=== PATIENT | female | born 1930 | race Caucasian/White ===

== ENCOUNTER → 2017-06-25 | Outpatient (CLI) | payer MEDICARE, BC ==
[~2017-06-25] MED LIST: ALE10 PO; ALEN70TA43 PO; AML5; AMLO-96 PO; ASPI-1471 PO; BLOO-1318 MC; CARB-94 PO; CHOL10005 PO; CYCL10TA29 PO; DIAZ-308 PO; FLU IM; GLIM2TAB43 PO; GLIM4TAB50 PO; HYDR-4309 PO; IRBE1TAB24 PO; LANC-714 MC; LEVO250T55 PO; LOR5/325 PO; LOSA-51 PO; LOSA-54 PO; MELO-205 PO; METF500T4 PO; METH4TAB66 PO; METO-233 PO; METO-235 PO; NAPR-1043 PO; OMEP-125 PO; PAN40 PO; PNEU0.5D3 IM; PRI250 PO; PRIM50TA PO; SIMV-49 PO; TRAM-420 PO; [UNRECOGNIZED DRUG - CODE] PO
[2017-06-25 10:54] LABS: PLATELET COUNT, AUTOMATED 285 K/uL (150-450)
== END ==
LOC: LAB 10:29
PROVIDERS: ATTEND Emergency Medicine
DX: E11.9 Type 2 diabetes mellitus without complications (principal)
CPT/HCPCS: 36415; 82040; 82247; 82310; 82374; 82435; 82465; 82565; 82947; 83036; 83718; 84075; 84132; 84155; 84295; 84450; 84460; 84478; 84520; 85025

== ENCOUNTER 2017-07-24 10:59 | Inpatient (IN) | payer MEDICARE, BC ==
[~2017-07-24] VITALS: Ht 149.9 cm; Wt 48.5 kg
[~2017-07-24 10:59] MED LIST changes: +DEN60I SUBQ
--- NOTE | 2017-07-24 11:07 | ER Report ---
History and Physical Time Seen By MD: 11:06 HPI/ROS CHIEF COMPLAINT: Abdominal pain HISTORY OF PRESENT ILLNESS: This is an 87-year-old female who presents to the emergency department for severe abdominal pain, nausea and vomiting. Patient states she woke up suddenly at 3:00 this morning with diffuse abdominal pain, has been progressively getting worse she's had multiple episodes of vomiting, no diarrhea. Patient had 2 "normal bowel movements" yesterday. Patient denies aches, chills, chest pain or shortness of breath. Denies headaches or rashes. Patient is very pale and holding her abdomen. No radiation to the back. REVIEW OF SYSTEMS: Constitutional: No fever, no chills. Eyes: No discharge. ENT: No sore throat. Cardiovascular: No chest pain, no palpitations. Respiratory: No cough, no shortness of breath. Gastrointestinal: As above. Genitourinary: No hematuria. Musculoskeletal: No back pain. Skin: No rashes. Neurological: No headache. Allergies: Coded Allergies: amoxicillin (Unverified Allergy, Unknown, UNKNOWN, 09/06/15) celecoxib (Unverified Allergy, Unknown, UNKNOWN, 09/06/15) clavulanic acid (Unverified Allergy, Unknown, UNKNOWN, 09/06/15) gluten (Verified Allergy, Unknown, 09/06/15) nitrofurantoin (Unverified Allergy, Unknown, UNKNOWN, 09/06/15) Home Meds Active Scripts Losartan/Hydrochlorothiazide (LOSARTAN-HCTZ 100-25 MG TAB) 1 Each Tablet, 1 EACH PO QDAY, #90 TAB 4 Refills Prov:MARSHA BARRAGAN MD 03/15/17 Lancets (LANCETS) 1 Each Each, 1 EACH MC DAILY, #100 9 Refills Use once a day to test blood sugar Prov:MARSHA BARRAGAN MD 12/29/16 Blood Sugar Diagnostic (ONE TOUCH ULTRA TEST STRIPS) 1 Each Strip, 1 EACH MC BID , #100 STRIP 6 Refills Prov:MARSHA BARRAGAN MD 12/28/16 Simvastatin (SIMVASTATIN) 20 Mg Tablet, 1 TAB PO HS, #90 TAB 4 Refills Prov:MARSHA BARRAGAN MD 10/17/16 Glimepiride (GLIMEPIRIDE) 2 Mg Tablet, 2 MG PO QDAY, #90 TAB 3 Refills Prov:MARSHA BARRAGAN MD 09/28/16 Metoprolol Succinate (TOPROL XL) 50 Mg Tab.er.24h, 1 TAB PO QDAY, #90 TAB 3 Refills Prov:MARSHA BARRAGAN MD 09/28/16 Omeprazole (OMEPRAZOLE) 20 Mg Capsule.dr, 1 CAP PO QDAY, #90 CAP 4 Refills Prov:MARSHA BARRAGAN MD 08/09/16 Carbidopa/Levodopa (CARBIDOPA-LEVODOPA 25-100 TAB) 1 Each Tablet, 1 EACH PO QID , #0 TAB Prov:MARSHA BARRAGAN MD 06/19/16 Reported Medications Aspirin (ASPIRIN) 81 Mg Tab.chew, 81 MG PO QDAY, TAB.CHEW 07/24/17 Denosumab (PROLIA) 60 Mg/1 Ml Injs, 60 MG SUBQ 07/24/17 Primidone (PRIMIDONE) 50 Mg Tab, 1 TAB PO TID, #90 TAB 12/08/14 Discontinued Reported Medications Cholecalciferol (Vitamin D3) (VITAMIN D3) 1,000 Unit Tablet, 1 TAB PO DAILY, # 100 TAB 4 Refills 07/15/14 Discontinued Scripts Alendronate Sodium (FOSAMAX) 70 Mg Tablet, 70 MG PO QWK, #14 TAB 3 Refills Prov:MARSHA BARRAGAN MD 01/30/17 Past Medical/Surgical History Patient has a past medical and surgical history of aortic valve stenosis, hypertension, hypercholesterolemia, COPD, GERD, lactose-free diet, arthritis, back pain, wears glasses, type II diabetes, laminectomy, right shoulder surgery , tonsillectomy, laser surgery to right eye. Reviewed Nurses Notes: Yes Hx Smoking: No Smoking Status: Never Smoker Constitutional Vital Sign - Last 24 Hours 07/24/17 07/24/17 07/24/17 07/24/17 10:59 11:09 11:09 11:14 Temp 97.7 Pulse ??? 62 ??? Resp 18 B/P (MAP) 187/84 187/84 (118) Pulse Ox 94 100 O2 Delivery Room Air 07/24/17 07/24/17 07/24/17 07/24/17 11:29 11:30 11:44 11:59 Pulse ? 68 Resp 8 B/P (MAP) 169/71 (103) Pulse Ox 100 99 07/24/17 07/24/17 07/24/17 07/24/17 12:00 12:14 12:29 12:30 Pulse 88 70 Resp 10 13 B/P (MAP) 172/83 (112) 157/92 (113) Pulse Ox 99 92 07/24/17 12:44 Pulse ??? Intake and Output 07/24/17 07/24/17 07/25/17 15:00 23:00 07:00 Intake Total 500 ml Output Total 50 ml Balance 450 ml Physical Exam General Appearance: The patient is alert, has no immediate need for airway protection and no signs of toxicity, pale and appears very uncomfortable. Eyes: Pupils equal and round no pallor or injection. ENT, Mouth: Mucous membranes are moist. No erythema to the posterior oropharynx. Respiratory: There are no retractions, lungs are clear to auscultation. Cardiovascular: Regular rate and rhythm, systolic murmur, no clicks or rubs. Gastrointestinal: Abdomen is soft and non tender with palpation, no masses, bowel sounds normal. Neurological: Alert and oriented X4, moving all extremities, following on all commands, no focal neuro deficits. Skin: Warm and dry, no rashes. Musculoskeletal: Neck is supple non tender. No lymphadenopathy. Extremities are nontender, nonswollen and have full range of motion. DIFFERENTIAL DIAGNOSIS: After history and physical exam differential diagnosis was considered for abdominal pain in a female including but not limited to ovarian cyst, pelvic inflammatory disease, ovarian torsion, urinary tract infection, appendicitis, SD and aortic aneurysm. Medical Decision Making Data Points Result Diagram: 07/24/17 1111 07/24/17 1111 Laboratory Hematology Test 07/24/17 11:11 07/24/17 12:35 07/24/17 14:43 Red Blood Count 4.59 M/uL (4.17-5.56) Mean Corpuscular Volume 89.5 fL (80.0-96.0) Mean Corpuscular Hemoglobin 30.2 pg (26.0-33.0) Mean Corpuscular Hemoglobin Concent 33.7 g/dL (32.0-36.0) Red Cell Distribution Width 13.2 % (11.5-14.5) Mean Platelet Volume 8.7 fL (7.2-11.1) Neutrophils (%) (Auto) 83.3 % (39.4-72.5) Lymphocytes (%) (Auto) 13.5 % (17.6-49.6) Monocytes (%) (Auto) 2.1 % (4.1-12.4) Eosinophils (%) (Auto) 0.3 % (0.4-6.7) Basophils (%) (Auto) 0.8 % (0.3-1.4) Nucleated RBC Relative Count (auto) 0.0 /100WBC Neutrophils # (Auto) 12.6 K/uL (2.0-7.4) Lymphocytes # (Auto) 2.0 K/uL (1.3-3.6) Monocytes # (Auto) 0.3 K/uL (0.3-1.0) Eosinophils # (Auto) 0.1 K/uL (0.0-0.5) Basophils # (Auto) 0.1 K/uL (0.0-0.1) Nucleated RBC Absolute Count (auto) 0.01 K/uL Sodium Level 133 mmol/L (137-145) Potassium Level 3.5 mmol/L (3.5-5.0) Chloride Level 94 mmol/L (98-107) Carbon Dioxide Level 24 mmol/L (22-31) Blood Urea Nitrogen 30 mg/dl (7-18) Creatinine 1.00 mg/dl (0.52-1.04) Glomerular Filtration Rate Calc 52.7 Random Glucose 188 mg/dl (75-110) Calcium Level 9.4 mg/dl (8.4-10.2) Total Bilirubin 0.6 mg/dl (0.2-1.3) Aspartate Amino Transf (AST/SGOT) 31 U/L (0-35) Alanine Aminotransferase (ALT/SGPT) 20 U/L (0-56) Alkaline Phosphatase 99 U/L (0-126) Troponin I < 0.012 ng/ml Total Protein 7.3 gm/dl (6.3-8.2) Albumin 4.2 g/dl (3.5-5.0) Amylase Level 113 U/L (0-110) Lipase 98 U/L (23-300) Urine Color Yellow Urine Clarity Clear Urine pH 7.0 pH (4.8-9.5) Urine Specific [place] 1.017 Urine Protein Negative mg/dL (NEGATIVE) Urine Glucose (UA) 50 mg/dL (NEGATIVE) Urine Ketones 20 mg/dL (NEGATIVE) Urine Blood Negative (NEGATIVE) Urine Nitrite Negative (NEGATIVE) Urine Bilirubin Negative (NEGATIVE) Urine Urobilinogen Negative mg/dL (0.2-1.9) Urine Leukocyte Esterase Negative (NEGATIVE) Urine RBC None /HPF (0-2/HPF) Urine WBC 8 /HPF (0-5/HPF) Urine Squamous Epithelial Cells Moderate /LPF (NONE-FEW) Urine Bacteria Negative /HPF (NONE-FEW) Urine Mucus None /HPF (NONE-FEW) Lactate 3.1 mmol/L (0.7-2.1) Chemistry Test 07/24/17 11:11 07/24/17 12:35 07/24/17 14:43 White Blood Count 15.1 k/uL (4.5-11.0) Red Blood Count 4.59 M/uL (4.17-5.56) Hemoglobin 13.8 g/dL (12.0-16.0) Hematocrit 41.1 % (34.0-47.0) Mean Corpuscular Volume 89.5 fL (80.0-96.0) Mean Corpuscular Hemoglobin 30.2 pg (26.0-33.0) Mean Corpuscular Hemoglobin Concent 33.7 g/dL (32.0-36.0) Red Cell Distribution Width 13.2 % (11.5-14.5) Platelet Count 258 K/uL (150-450) Mean Platelet Volume 8.7 fL (7.2-11.1) Neutrophils (%) (Auto) 83.3 % (39.4-72.5) Lymphocytes (%) (Auto) 13.5 % (17.6-49.6) Monocytes (%) (Auto) 2.1 % (4.1-12.4) Eosinophils (%) (Auto) 0.3 % (0.4-6.7) Basophils (%) (Auto) 0.8 % (0.3-1.4) Nucleated RBC Relative Count (auto) 0.0 /100WBC Neutrophils # (Auto) 12.6 K/uL (2.0-7.4) Lymphocytes # (Auto) 2.0 K/uL (1.3-3.6) Monocytes # (Auto) 0.3 K/uL (0.3-1.0) Eosinophils # (Auto) 0.1 K/uL (0.0-0.5) Basophils # (Auto) 0.1 K/uL (0.0-0.1) Nucleated RBC Absolute Count (auto) 0.01 K/uL Glomerular Filtration Rate Calc 52.7 Calcium Level 9.4 mg/dl (8.4-10.2) Total Bilirubin 0.6 mg/dl (0.2-1.3) Aspartate Amino Transf (AST/SGOT) 31 U/L (0-35) Alanine Aminotransferase (ALT/SGPT) 20 U/L (0-56) Alkaline Phosphatase 99 U/L (0-126) Troponin I < 0.012 ng/ml Total Protein 7.3 gm/dl (6.3-8.2) Albumin 4.2 g/dl (3.5-5.0) Amylase Level 113 U/L (0-110) Lipase 98 U/L (23-300) Urine Color Yellow Urine Clarity Clear Urine pH 7.0 pH (4.8-9.5) Urine Specific [place] 1.017 Urine Protein Negative mg/dL (NEGATIVE) Urine Glucose (UA) 50 mg/dL (NEGATIVE) Urine Ketones 20 mg/dL (NEGATIVE) Urine Blood Negative (NEGATIVE) Urine Nitrite Negative (NEGATIVE) Urine Bilirubin Negative (NEGATIVE) Urine Urobilinogen Negative mg/dL (0.2-1.9) Urine Leukocyte Esterase Negative (NEGATIVE) Urine RBC None /HPF (0-2/HPF) Urine WBC 8 /HPF (0-5/HPF) Urine Squamous Epithelial Cells Moderate /LPF (NONE-FEW) Urine Bacteria Negative /HPF (NONE-FEW) Urine Mucus None /HPF (NONE-FEW) Lactate 3.1 mmol/L (0.7-2.1) Urinalysis Test 07/24/17 12:35 Urine Color Yellow Urine Clarity Clear Urine pH 7.0 pH (4.8-9.5) Urine Specific [place] 1.017 Urine Protein Negative mg/dL (NEGATIVE) Urine Glucose (UA) 50 mg/dL (NEGATIVE) Urine Ketones 20 mg/dL (NEGATIVE) Urine Blood Negative (NEGATIVE) Urine Nitrite Negative (NEGATIVE) Urine Bilirubin Negative (NEGATIVE) Urine Urobilinogen Negative mg/dL (0.2-1.9) Urine Leukocyte Esterase Negative (NEGATIVE) Urine RBC None /HPF (0-2/HPF) Urine WBC 8 /HPF (0-5/HPF) Urine Squamous Epithelial Cells Moderate /LPF (NONE-FEW) Urine Bacteria Negative /HPF (NONE-FEW) Urine Mucus None /HPF (NONE-FEW) EKG/Imaging EKG Interpretation 12 lead EKG: EKG 1116. Rhythm: Sinus rhythm, ventricular rate 72 bpm. [place]: normal QRS: normal ST segments: No ST depression or elevation identified. No significant changes from the May 25, 2015 EKG, other than the current EKG showing PAC's. Imaging 2 VIEWS CHEST INDICATION: Severe abdominal pain. COMPARISON: 08/03/2015. FINDINGS: Cardiomediastinal silhouette and pulmonary vessels within normal limits. There is no focal infiltrate or lobar consolidation. There is no pneumothorax or pleural effusion. No nodule. Upper abdomen is unremarkable. No acute bony abnormality. IMPRESSION: 1. No acute cardiopulmonary process. Report Dictated By: Lew Segal at 07/24/2017 12:07 PM Report E-Signed By: Lew Segal at 07/24/2017 12:09 PM WSN:[id number] ED Course/Re-evaluation Clinical Indication for ER IV: Hydration, IV Access ED Course The patient was admitted to room. A history and physical were obtained. Differential diagnoses were considered. An IV was started. A 500 mL normal saline bolus was given. A CBC, CMP, troponin, amylase and lipase were obtained. Mild leukocytosis, blood sugar 188. The rest of the labs unremarkable. Patient was given Zofran IV 2, 50 g IV fentanyl. A 2 view chest x-ray was unremarkable. I reviewed the chest x-ray and laboratory studies with the patient. I did tell her I do not have a good explanation for her abdominal pain and therefore we need to scan her abdomen and pelvis. Patient is in agreement with this. A CT of the abdomen and pelvis showing a small bowel obstruction with possible early ischemic changes. I did review these results with the patient and told her that I will call Dr. Ortega and discuss a possible admit. I did speak with Dr. Ortega as noted below, he has accepted the patient into his services and will be admitted to [facility]. Dr. Ortega did call Dr. Cotto the hospitalist medical authorization specialist for a medical consult. An NG tube was placed. The patient was admitted to the medical surgical unit patient and other questions or concerns at the time of admission. 07/24/2017 2:09:40 pm I did speak with Dr. Luo regarding the patient's case , he has accepted the patient into his services he will call Dr. Cotto for hospitalist consults have the patient admitted. And place an NG tube. Decision to Disposition Date: Jul 24, 2017 Decision to Disposition Time: 14:15 Depart Departure Latest Vital Signs Vital Signs Date Time Temp Pulse Resp B/P (MAP) Pulse Ox O2 Delivery O2 Flow Rate FiO2 07/24/17 12:44 ??? 07/24/17 12:30 157/92 (113) 07/24/17 12:29 13 92 07/24/17 11:09 97.7 Room Air Impression: Primary Impression: Small bowel obstruction Condition: Improved Disposition: Admitted from ER Referrals: MARSHA BARRAGAN MD (PCP) NENA BALDERAS [employer] Jul 24, 2017 11:07
[2017-07-24] MEDS ORDERED: NS(*) 0.9% 500 ML BAG 500 ML IV ONE (11:11)
[2017-07-24] MEDS ORDERED: ONDANSETRON 4 MG/2 ML VIAL IVP ONE ×2 (11:15→12:20)
[2017-07-24] MEDS ORDERED: DEN60I SUBQ (11:19)
[2017-07-24] MEDS ORDERED: ASPI81TA94 PO (11:22)
--- NOTE | 2017-07-24 11:25 | EKG ---
FACILITY: [facility] - [place] PATIENT NAME: MELL SALAS : [id number] MR: [id number] V: [id number] EXAM DATE: ORDERING PHYSICIAN: NENA BALDERAS TECHNOLOGIST: PUSHPA Sampson Reason : Blood Pressure : / mmHG Vent. 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
[2017-07-24 11:29] LABS: PLATELET COUNT, AUTOMATED 258 K/uL (150-450)
--- NOTE | 2017-07-24 12:12 | RADIOLOGY IMAGING REPORT ---
FACILITY: [facility] PATIENT NAME: Chaya Dunne : 1930 MR: [id number] V: [id number] EXAM DATE: ORDERING PHYSICIAN: NENA BALDERAS TECHNOLOGIST: Location: [facility] Patient: Chaya Dunne : 1930 Visit/Account:[id number] Date of Sevice: 07/24/2017 2 VIEWS CHEST INDICATION: Severe abdominal pain. COMPARISON: 08/03/2015. FINDINGS: Cardiomediastinal silhouette and pulmonary vessels within normal limits. There is no focal infiltrate or lobar consolidation. There is no pneumothorax or pleural effusion. No nodule. Upper abdomen is unremarkable. No acute bony abnormality. IMPRESSION: 1. No acute cardiopulmonary process. Report Dictated By: Lew Segal at 07/24/2017 12:07 PM Report E-Signed By: Lew Segal at 07/24/2017 12:09 PM WSN:[id number]
[2017-07-24] MEDS ORDERED: fentaNYL CITR 100 MCG/2 ML AMP IVP ONE ×2 (12:20→14:05)
[2017-07-24] MEDS ORDERED: IOPAMIDOL 76% 75 ML INFUS BTL 75 ML ONE (12:29)
--- NOTE | 2017-07-24 14:02 | RADIOLOGY IMAGING REPORT ---
FACILITY: [facility] PATIENT NAME: Chaya Dunne : 1930 MR: [id number] V: [id number] EXAM DATE: ORDERING PHYSICIAN: NENA BALDERAS TECHNOLOGIST: Location: [facility] Patient: Chaya Dunne : 1930 Visit/Account:[id number] Date of Sevice: 07/24/2017 CT abdomen and pelvis with IV contrast Indication: Abdomen pain. Comparison: None available. . Technique: Axial CT images were obtained through the abdomen and pelvis during injection of nonioni c iodinated intravenous contrast. Reformatted coronal and sagittal images were also obtained. One of the following dose optimization techniques was utilized in the performance of this exam: Autom ated exposure control; adjustment of the mA and/or kV according to the patient's size; or use of an i terative reconstruction technique. Specific details can be referenced in the facility's radiology C T exam operational policy. Contrast: 75 ml of Isovue-370 IV contrast. Findings: Lower lung maria: Limited views lower lung field are unremarkable. Liver: No focal parenchymal abnormality of the liver. Biliary: Status post costectomy. The biliary system is unremarkable postcholecystectomy and patient's age. Pancreas: Normal appearance. Spleen: Normal appearance. Adrenal glands: Unremarkable. Kidneys / retroperitoneum: No evidence of nephrolithiasis or hydronephrosis. Superior pole of the lef t kidney shows a 1.5 cm cyst. No other discrete renal lesions. Bowel / peritoneum / mesenteries: There are multiple loops of mild dilatation the small bowel in the right lower abdomen and pelvis with mild wall thickening and surrounding inflammation. Focal small reena wel in the mid lower abdomen does show focal luminal narrowing seen on image #84. A cause is not iden tified in this region however this appears to be the area of transition. The proximal small bowel is unremarkable. The colon shows no focal abnormality. The appendix is normal. The stomach is unremarkab le with a possible small hiatal hernia. Small amount of free fluid seen in the pelvis. No fluid collections or free air. No other areas of in flammation. Lymph node assessment: No pathologic adenopathy identified. Pelvic structures: The uterus is not visualized may been surgically removed. The remaining pelvic structures visualized within normal limits. Vessels: Mild atherosclerotic calcifications seen throughout a nonaneurysmal abdominal aorta and bran ches. Musculoskeletal / Body wall: No acute or aggressive osseous abnormality. Degenerative changes of the spine and hips. Previous fractures of the rami. IMPRESSION: 1. Abnormal distal small bowel consistent with obstruction. Area of transition appears to be in lower mid abdomen with a area of luminal narrowing without a mass or focal abnormality. This could be due to a stricture/band causing an obstruction or a internal hernia. Small bowel does show some mild wall thickening with some surrounding inflammation and small amount of fluid in the pelvis. At this point cannot exclude early ischemic changes to this region of the small bowel. 2. Other chronic findings as above. I called report to NENA BALDERAS at 07/24/2017 1:57 PM. Report Dictated By: Lew Segal at 07/24/2017 1:48 PM Report E-Signed By: Lew Segal at 07/24/2017 1:58 PM WSN:[id number]
[2017-07-24] MEDS ORDERED: NS(*) 0.9% 1000 ML BAG 1,000 ML IV PRN (14:17)
[2017-07-24] MEDS ORDERED: NALOXONE HCL 0.4 MG/ML VIAL IVP PRN (14:20)
[2017-07-24] MEDS ORDERED: ONDANSETRON 4 MG/2 ML VIAL IVP PRN (14:20)
[2017-07-24] MEDS ORDERED: FLUSH 10 ML SYR IVP PRN (14:20)
[2017-07-24] MEDS ORDERED: HYDROmorphone PCA 6 MG/30 ML IV PRN (14:20)
[2017-07-24] MEDS ORDERED: LEVOFLOXACIN/D5W*500 MG/100 ML 100 ML IVPB ONE (15:00)
--- NOTE | 2017-07-24 15:24 | RADIOLOGY IMAGING REPORT ---
FACILITY: [facility] - [place] PATIENT NAME: Chaya Dunne : 1930 MR: [id number] V: [id number] EXAM DATE: ORDERING PHYSICIAN: ELEN RIBERA TECHNOLOGIST: [place] [facility] [place]: Chaya Dunne : 1930 Visit/Account:[id number] Date of Sevice: 07/24/2017 KUB SINGLE VIEW ABDOMEN INDICATION: NG tube placement. Small bowel obstruction. COMPARISON: CT of the abdomen pelvis done earlier in the day. FINDINGS: Single frontal view the abdomen. NG tube in place tip in the stomach. No dilated small reena wel loops are appreciated. Some stool seen in colon. Residual contrast seen in the urinary bladder an d kidneys. Abdominal soft tissues grossly normal without suspicious lucencies or abnormal calcificati ons. Lung bases are clear. No acute bony abnormality. IMPRESSION: NG tube in place with tip in the stomach. No appreciable dilated air-filled small bowel l oops. Report Dictated By: Lew Segal at 07/24/2017 3:17 PM Report E-Signed By: Lew Segal at 07/24/2017 3:19 PM WSN:[id number]
[2017-07-24 16:06] VITALS: BP 182/84
[2017-07-24] MEDS: LEVOFLOXACIN/D5W*500 MG/100 ML 100 ML IVPB SCH (16:16)
[2017-07-24] MEDS ORDERED: CHOL10005 PO (16:37)
[2017-07-24] MEDS: metroNIDAZOLE* 500MG/100ML BAG 100 ML IVPB SCH (17:21)
[2017-07-24] MEDS: CARBIDOPA/LEVODOPA 25/100 TAB PO SCH ×2 (17:31→21:57)
[2017-07-24] MEDS ORDERED: LABETALOL HCL 100 MG/20ML VIAL IVP PRN (17:40)
--- NOTE | 2017-07-24 17:48 | Hospitalist Consultation ---
History of Present Illness Requesting Physician Jordan Reason for Consult Aortic Stenosis History of Present Illness 87yo female with a h/o aortic stenosis, T2DM, and Parkinson disease who was admitted for a SBO. She was in her normal state of health until about 3am this morning when she developed abdominal pain, nausea and vomiting. No cp/sob/f/c/ edema/orthopnea. She had some "hard" stools in the last couple of days. 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 (11) Essential hypertension Status: Chronic (12) Hyperlipidemia Status: Chronic (13) GERD (gastroesophageal reflux disease) Status: Chronic Home Meds Active Scripts Losartan/Hydrochlorothiazide (LOSARTAN-HCTZ 100-25 MG TAB) 1 Each Tablet, 1 EACH PO QDAY, #90 TAB 4 Refills Prov:MARSHA BARRAGAN MD 03/15/17 Lancets (LANCETS) 1 Each Each, 1 EACH MC DAILY, #100 9 Refills Use once a day to test blood sugar Prov:MARSHA BARRAGAN MD 12/29/16 Blood Sugar Diagnostic (ONE TOUCH ULTRA TEST STRIPS) 1 Each Strip, 1 EACH MC BID , #100 STRIP 6 Refills Prov:MARSHA BARRAGAN MD 12/28/16 Simvastatin (SIMVASTATIN) 20 Mg Tablet, 1 TAB PO HS, #90 TAB 4 Refills Prov:MARSHA BARRAGAN MD 10/17/16 Glimepiride (GLIMEPIRIDE) 2 Mg Tablet, 2 MG PO QDAY, #90 TAB 3 Refills Prov:MARSHA BARRAGAN MD 09/28/16 Metoprolol Succinate (TOPROL XL) 50 Mg Tab.er.24h, 1 TAB PO QDAY, #90 TAB 3 Refills Prov:MARSHA BARRAGAN MD 09/28/16 Omeprazole (OMEPRAZOLE) 20 Mg Capsule.dr, 1 CAP PO QDAY, #90 CAP 4 Refills Prov:MARSHA BARRAGAN MD 08/09/16 Carbidopa/Levodopa (CARBIDOPA-LEVODOPA 25-100 TAB) 1 Each Tablet, 1 EACH PO QID , #0 TAB Prov:MARSHA BARRAGAN MD 06/19/16 Reported Medications Cholecalciferol (Vitamin D3) (VITAMIN D3) 1,000 Unit Tablet, 2000 UNIT PO DAILY , TAB 07/24/17 Aspirin (ASPIRIN) 81 Mg Tab.chew, 81 MG PO QDAY, TAB.CHEW 07/24/17 Denosumab (PROLIA) 60 Mg/1 Ml Injs, 60 MG SUBQ 07/24/17 Primidone (PRIMIDONE) 50 Mg Tab, 1 TAB PO TID, #90 TAB 12/08/14 Discontinued Reported Medications Cholecalciferol (Vitamin D3) (VITAMIN D3) 1,000 Unit Tablet, 1 TAB PO DAILY, # 100 TAB 4 Refills 07/15/14 Discontinued Scripts Alendronate Sodium (FOSAMAX) 70 Mg Tablet, 70 MG PO QWK, #14 TAB 3 Refills Prov:MARSHA BARRAGAN MD 01/30/17 Allergies: Coded Allergies: amoxicillin (Unverified Allergy, Unknown, UNKNOWN, 09/06/15) celecoxib (Unverified Allergy, Unknown, UNKNOWN, 09/06/15) clavulanic acid (Unverified Allergy, Unknown, UNKNOWN, 09/06/15) gluten (Verified Allergy, Unknown, 09/06/15) nitrofurantoin (Unverified Allergy, Unknown, UNKNOWN, 09/06/15) Patient History: FH: lung cancer FATHER, , Age:66 FH: rheumatoid arthritis Daughter Hx Smoking: No Smoking Status: Never Smoker Caffeine Intake: Tea Caffeine/Cups Per Day: 2 CUPS PER DAY Hx Substance Use Disorder: No Social Drug Use: Never Review of Systems All Systems Reviewed/Normal: Yes, Except as Noted Exam Vital Signs Vital Signs Date Time Temp Pulse Resp B/P (MAP) Pulse Ox O2 Delivery O2 Flow Rate FiO2 07/24/17 16:25 90 07/24/17 16:25 Room Air 07/24/17 16:06 98.1 92 16 182/84 (116) 2.0 General Appearance: Alert, Awake, Other (She appears uncomfortable and pale. Normal wob) Cardiovascular: No JVD, Other (Loud S1 in axilla. Diffuse systolic murmur throughout.) Respiratory: Clear to Auscultation GI: Other (Soft, non-distended, no BS, pain RUQ with palpation. No guarding or peritoneal signs) Extremities: No Edema Integumentary: No Jaundice, No Cyanosis Medical Decision Making Data Points Result Diagram: 07/24/17 1111 07/24/17 1111 Item Value Date Time Neutrophils (%) (Auto) 83.3 % H 07/24/17 1111 Lymphocytes (%) (Auto) 13.5 % L 07/24/17 1111 Monocytes (%) (Auto) 2.1 % L 07/24/17 1111 Prothromb Time International Ratio 0.94 08/03/15 0926 Lactate 3.1 mmol/L H 07/24/17 1443 Blood Urea Nitrogen 30 mg/dl H 07/24/17 1111 Creatinine 1.00 mg/dl 07/24/17 1111 Chloride Level 94 mmol/L L 07/24/17 1111 Carbon Dioxide Level 24 mmol/L 07/24/17 1111 Aspartate Amino Transf (AST/SGOT) 31 U/L 07/24/17 1111 Alanine Aminotransferase (ALT/SGPT) 20 U/L 07/24/17 1111 Alkaline Phosphatase 99 U/L 07/24/17 1111 Troponin I < 0.012 ng/ml 07/24/17 1111 Total Protein 7.3 gm/dl 07/24/17 1111 Amylase Level 113 U/L H 07/24/17 1111 Lipase 98 U/L 07/24/17 1111 Urine RBC None /HPF 07/24/17 1235 Urine WBC 8 /HPF 07/24/17 1235 Urine Squamous Epithelial Cells Moderate /LPF H 07/24/17 1235 Urine Bacteria Negative /HPF 07/24/17 1235 Urine Mucus None /HPF 07/24/17 1235 Urine Glucose (UA) 50 mg/dL H 07/24/17 1235 Urine Ketones 20 mg/dL H 07/24/17 1235 EKG / Imaging Imaging Abd/Pelvis CT - 1. Abnormal distal small bowel consistent with obstruction. Area of transition appears to be in lower mid abdomen with a area of luminal narrowing without a mass or focal abnormality. This could be due to a stricture/ band causing an obstruction or a internal hernia. Small bowel does show some mild wall thickening with some surrounding inflammation and small amount of fluid in the pelvis. At this point cannot exclude early ischemic changes to this region of the small bowel. 2. Other chronic findings as above. CXR - 1. No acute cardiopulmonary process. Echo (12/26/16) - 1. Normal left ventricular ejection fraction of 74% with a grade 1/4 decrease in diastolic function. 2. Mild enlargement of the right ventricle that appears to contract normally. 3. Mild concentric left ventricular thickening with no evidence for any outflow tract obstruction. No wall motion abnormalities are noted. 4. Trace amount of mitral insufficiency with no mitral stenosis. 5. A mild amount of tricuspid insufficiency with estimated right ventricular systolic pressures of 36 mmHg which does include an estimated right atrial pressure of 3 mmHg. 6. A probable trileaflet aortic valve with a severe amount of aortic stenosis and a valve area of 0.5 cm2 with mean pressure gradient across the valve of 43 mmHg and a dimensionless index of 0.3. There is a moderate amount of aortic insuff. 7. Moderate enlargement of the left atrium. 8. In comparison to the examination done on 06/23/2011, the aortic valve still has a moderate amount of aortic insufficiency but the aortic valve area has significantly decreased from 1.45 cm2 with mean pressure gradient across the valve of 22 mmHg to 0.5 with mean pressure gradient of 43 mmHg. The right ventricular systolic pressures are approximately the same. Assessment and Plan Problems: (1) Small bowel obstruction Status: Acute Assessment & Plan: Etiology unclear. Dr. Ribera managing. If she requires surgery, would strongly consider transfer to a higher level of care because of the severe aortic stenosis. 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 Her lungs are clear and has no edema. She has no evidence of fluid overload by history. Agree with gentle hydration. See above. (3) Type II diabetes mellitus Status: Chronic Assessment & Plan: Hold Glimepiride. Agree with scheduled glucose checks with SSI level 2 to cover. (4) Parkinsons disease Status: Chronic Assessment & Plan: Could try giving Sinemet and Primidone orally and clamping NG for 30-60 minutes, but will defer to Dr. Ribera. The patient's was very concerned that the patient get the Sinemet. However, the patient will likely not have too many adverse affects by holding the medications. (5) Essential hypertension Status: Chronic Assessment & Plan: Hold HCTZ/Losartan and Metoprolol. Will give IV labetalol for elevated BP. (6) CKD (chronic kidney disease) stage 3, GFR 30-59 ml/min Status: Chronic Copies to: MARSHA BARRAGAN MD; EVENS MARTINEZ MD; ELEN RIBERA MD Venous Thromboembolism Antithrombotics Is Pt On Any Antithrombotics?: No Exam Sepsis Risk: No Definite Risk SISSY MALLORY MD Jul 24, 2017 17:48
[2017-07-24] MEDS: INSULIN HUM LISPRO 100 UN/ML 3 ML VIAL SUBQ PRN (18:19)
--- NOTE | 2017-07-24 18:47 | Gen Surgery History & Physical ---
History of Present Illness Chief Complaint Abdominal pain History of Present Illness 87yo female, awoke at 0300 this morning with severe abdominal pain and bloating with N/V. She's never had symptoms like this before. She's had 1 or 2 episodes of flatus today but much less than usual. Symptoms have been improving as the day has progressed. She deals with constipation chronically but usually has a daily BM. Her last BM was yesterday. No F/C. She has had her gallbladder removed and she's had hysterectomy and oophorectomy. 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 (2) Senile osteoporosis Status: Chronic (3) Celiac disease Status: Chronic (4) Essential hypertension Status: Chronic (5) Hyperlipidemia Status: Chronic (6) GERD (gastroesophageal reflux disease) Status: Chronic (7) Type II diabetes mellitus Status: Chronic (8) Essential tremor Status: Chronic (9) Parkinsons disease Status: Chronic (10) CKD (chronic kidney disease) stage 3, GFR 30-59 ml/min Status: Chronic (11) Proliferative diabetic retinopathy Status: Chronic (12) Lactose intolerance Status: Chronic (13) History of cholecystectomy (14) History of hysterectomy (15) History of tonsillectomy (16) History of knee replacement (17) History of lumbar fusion Home Meds Active Scripts Losartan/Hydrochlorothiazide (LOSARTAN-HCTZ 100-25 MG TAB) 1 Each Tablet, 1 EACH PO QDAY, #90 TAB 4 Refills Prov:MARSHA BARRAGAN MD 03/15/17 Lancets (LANCETS) 1 Each Each, 1 EACH MC DAILY, #100 9 Refills Use once a day to test blood sugar Prov:MARSHA BARRAGAN MD 12/29/16 Blood Sugar Diagnostic (ONE TOUCH ULTRA TEST STRIPS) 1 Each Strip, 1 EACH MC BID , #100 STRIP 6 Refills Prov:MARSHA BARRAGAN MD 12/28/16 Simvastatin (SIMVASTATIN) 20 Mg Tablet, 1 TAB PO HS, #90 TAB 4 Refills Prov:MARSHA BARRAGAN MD 10/17/16 Glimepiride (GLIMEPIRIDE) 2 Mg Tablet, 2 MG PO QDAY, #90 TAB 3 Refills Prov:MARSHA BARRAGAN MD 09/28/16 Metoprolol Succinate (TOPROL XL) 50 Mg Tab.er.24h, 1 TAB PO QDAY, #90 TAB 3 Refills Prov:MARSHA BARRAGAN MD 09/28/16 Omeprazole (OMEPRAZOLE) 20 Mg Capsule.dr, 1 CAP PO QDAY, #90 CAP 4 Refills Prov:MARSHA BARRAGAN MD 08/09/16 Carbidopa/Levodopa (CARBIDOPA-LEVODOPA 25-100 TAB) 1 Each Tablet, 1 EACH PO QID , #0 TAB Prov:MARSHA BARRAGAN MD 06/19/16 Reported Medications Cholecalciferol (Vitamin D3) (VITAMIN D3) 1,000 Unit Tablet, 2000 UNIT PO DAILY , TAB 07/24/17 Aspirin (ASPIRIN) 81 Mg Tab.chew, 81 MG PO QDAY, TAB.CHEW 07/24/17 Denosumab (PROLIA) 60 Mg/1 Ml Injs, 60 MG SUBQ 07/24/17 Primidone (PRIMIDONE) 50 Mg Tab, 1 TAB PO TID, #90 TAB 12/08/14 Discontinued Reported Medications Cholecalciferol (Vitamin D3) (VITAMIN D3) 1,000 Unit Tablet, 1 TAB PO DAILY, # 100 TAB 4 Refills 07/15/14 Discontinued Scripts Alendronate Sodium (FOSAMAX) 70 Mg Tablet, 70 MG PO QWK, #14 TAB 3 Refills Prov:MARSHA BARRAGAN MD 01/30/17 Allergies: Coded Allergies: amoxicillin (Unverified Allergy, Unknown, UNKNOWN, 09/06/15) celecoxib (Unverified Allergy, Unknown, UNKNOWN, 09/06/15) clavulanic acid (Unverified Allergy, Unknown, UNKNOWN, 09/06/15) gluten (Verified Allergy, Unknown, 09/06/15) nitrofurantoin (Unverified Allergy, Unknown, UNKNOWN, 09/06/15) Patient History: FH: lung cancer FATHER, , Age:66 FH: rheumatoid arthritis Daughter Review of Systems All Systems Reviewed/Normal: Yes, Except as Noted Gastrointestinal: Nausea, Vomiting, Abdominal Pain Exam General Appearance: Alert, Awake, No Acute Distress, Afebrile Neuro: No Gross deficits Eyes: PERRLA GI: Other (Soft, mild TTP, no peritoneal signs, no distension) Extremities: Warm, Perfused Medical Decision Making Data Points Result Diagram: 07/24/17 1111 07/24/17 1111 Assessment and Plan Problems: (1) Small bowel obstruction Status: Acute Assessment & Plan: 07/24/17: Admit, bowel rest and decompression, IV fluids. Will empirically start IV levaquin/flagyl given possible bowel wall inflammation on CT. Pt is feeling better as the day has progressed. Will repeat her KUB tomorrow and if she's no better will get a SBFT with water- soluble contrast tomorrow. If she requires surgery, i.e. she doesn't improve with conservative management, she will need to be transferred to a hospital with adequate cardiac and critical care support with intraoperative DELMY ability due to her severe . I have explained this plan to her in detail and she seems to understand and is agreeable with this plan. 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
[2017-07-24] MEDS ORDERED: IV BOLUS 500 ML IVSOL IV ONE (19:40)
[2017-07-24] MEDS ORDERED: NS(*) 0.9% 1000 ML BAG 1,000 ML ONE (19:43)
[2017-07-24 19:44] VITALS: BP 142/65
[2017-07-24 22:30] VITALS: BP 119/54
[2017-07-24 23:28] VITALS: BP 113/59
[2017-07-25] MEDS: metroNIDAZOLE* 500MG/100ML BAG 100 ML IVPB SCH ×3 (00:28→17:33)
[2017-07-25] MEDS: INSULIN HUM LISPRO 100 UN/ML 3 ML VIAL SUBQ PRN (00:29)
[2017-07-25 03:47] VITALS: BP 132/62
[2017-07-25 05:27] LABS: PLATELET COUNT, AUTOMATED 207 K/uL (150-450)
[2017-07-25 07:04] VITALS: BP 144/74
--- NOTE | 2017-07-25 07:10 | General Surgery Progress Note ---
Subjective Progress Notes Subjective Feeling better this morning. Less pain. Passing small amounts of flatus. Physical Exam Vital Signs Date Time Temp Pulse Resp B/P (MAP) Pulse Ox O2 Delivery O2 Flow Rate FiO2 07/25/17 07:04 98.0 87 16 144/74 (97) 94 Nasal Cannula 0.5 General Appearance: Alert, Awake, No Acute Distress, Afebrile GI: Other (Soft, TTP to right of umbilicus, no peritoneal signs.) Extremities: Warm, Perfused Result Diagram: 07/25/1751907/25/17519 Assessment and Plan Problems: (1) Small bowel obstruction Status: Acute Assessment & Plan: 07/24/17: Admit, bowel rest and decompression, IV fluids. Will empirically start IV levaquin/flagyl given possible bowel wall inflammation on CT. Pt is feeling better as the day has progressed. Will repeat her KUB tomorrow and if she's no better will get a SBFT with water- soluble contrast tomorrow. If she requires surgery, i.e. she doesn't improve with conservative management, she will need to be transferred to a hospital with adequate cardiac and critical care support with intraoperative DELMY ability due to her severe . I have explained this plan to her in detail and she seems to understand and is agreeable with this plan. 07/25/17: Doing better clinically and symptomatically this morning but WBC up to 22K. Will follow this. No tachycardia (but on beta elida) no hypotension. No fevers. Lactate increased to 5 last night but has come down with fluids. Will get SBFT with water-soluble contrast today. O/W, continue NPO, IV fluids, IV abx. 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 Time Spent: < 30 min Exam Sepsis Risk: No Definite Risk ELEN RIBERA MD Jul 25, 2017 07:10
--- NOTE | 2017-07-25 07:46 | RADIOLOGY IMAGING REPORT ---
FACILITY: [facility] - [place] PATIENT NAME: Chaya Dunne : 1930 MR: [id number] V: [id number] EXAM DATE: ORDERING PHYSICIAN: ELEN RIBERA TECHNOLOGIST: Location: [facility] [place] Patient: Chaya Dunne : 1930 Visit/Account:[id number] Date of Sevice: 07/25/2017 Abdomen: Indication: Evaluation of obstruction. Technique: A single supine film was obtained. Comparison: 07/24/2017 Findings: The NG tube remains in satisfactory position. There is a nonobstructive intestinal gas fabien alexandr. The skeletal and soft tissue structures are unchanged. IMPRESSION: Nonobstructive intestinal gas pattern. Report Dictated By: Sandeep Navarro MD at 07/25/2017 7:39 AM Report E-Signed By: Sandeep Navarro MD at 07/25/2017 7:41 AM WSN:[id number]
[2017-07-25] MEDS ORDERED: PANTOPRAZOLE SOD 40 MG IV VIAL IVP SCH (09:00)
[2017-07-25] MEDS ORDERED: HYDROCHLOROTHIAZIDE 25 MG TAB PO SCH (09:00)
[2017-07-25] MEDS ORDERED: ENOXAPARIN 40 MG/0.4ML SYR SC SCH (09:00)
[2017-07-25] MEDS ORDERED: LOSARTAN POTASSIUM 50 MG TAB PO SCH (09:00)
[2017-07-25] MEDS: CARBIDOPA/LEVODOPA 25/100 TAB PO SCH ×4 (09:00→20:51)
[2017-07-25] MEDS ORDERED: METOPROLOL SUCC XL 50 MG TABCR 50 MG TAB.ER.24H PO SCH (09:00)
[2017-07-25] MEDS ORDERED: DIATRIZOATE MEGL/DIATRIZOA SOD 120 ML SOLN PO ONE (09:10)
[2017-07-25] MEDS ORDERED: LEVOFLOXACIN/D5W*500 MG/100 ML 100 ML IVPB SCH (10:00)
[2017-07-25] MEDS ORDERED: PROMETHAZINE 25 MG/ML 1 ML AMP IVP PRN (11:10)
[2017-07-25 11:13] VITALS: BP 168/81
--- NOTE | 2017-07-25 13:54 | Hospitalist Progress Note ---
Subjective Progress Notes Subjective This patient was admitted for bowel obstruction. She had no acute events overnight. Patient Complains of: Cardiovascular: No: Chest Pain Respiratory: No: Shortness of Breath Physical Exam Vital Signs Date Time Temp Pulse Resp B/P (MAP) Pulse Ox O2 Delivery O2 Flow Rate FiO2 07/25/17 11:13 98.9 88 16 168/81 (110) 94 Nasal Cannula 0.5 Intake and Output 07/26/17 07:00 Intake Total 100 ml Output Total 600 ml Balance -500 ml IV Total 100 ml Gastric Drainage Total 300 ml Emesis 300 ml # Emeses 2 Cardiovascular: Regular Rate and Rhythm GI: Other (Mild tenderness.) Extremities: No Edema Integumentary: No Cyanosis Result Diagram: 07/25/1751907/25/17519 Item Value Date Time Lactate 2.3 mmol/L H 07/25/17 0520 Lactate 1.6 mmol/L 07/25/17 0933 Assessment and Plan Problems: (1) Small bowel obstruction Status: Acute Assessment & Plan: Dr. Ortega has been managing this. 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 She will likely be very sensitive to hypovolemia should this occur. We would recommend that she be transferred to a facility with cardiology services if she were to require surgery. (3) Type II diabetes mellitus Status: Chronic Assessment & Plan: She is on chronic treatment with glimepiride, which is currently on hold. We are covering her with sliding scale level #2. (4) Parkinsons disease Status: Chronic Assessment & Plan: She is on chronic treatment with Sinemet and primidone. (5) Essential hypertension Status: Chronic Assessment & Plan: She is on chronic treatment with HCTZ/Losartan and Metoprolol. The losartan has been held secondary to an increase in her creatinine. (6) CKD (chronic kidney disease) stage 3, GFR 30-59 ml/min Status: Chronic Exam Sepsis Risk: No Definite Risk ELEN AVENDANO DO Jul 25, 2017 13:54
[2017-07-25 14:40] VITALS: Ht 149.9 cm; Wt 48.5 kg
--- NOTE | 2017-07-25 15:08 | Medical Nutrition Therapy ---
Nutrition Anthropometrics Height (Inches): 59.00 Height (Calculated Centimeters: 149.261452 Weight (Pounds): 105 Weight (Calculated Kilograms): 47.627 BMI Calculated: 21.21 Edmond Nutrition Score: Adequate Edmond Nutrition Risk Score: 21 Dietary Referral Nutrition Risk Factors: Nutrition Risk Comment: Physical Findings Physical Appearance: BMI 21 Skin Appearance Skin Appearance: Edema Edema Location Modifier: Edema Location: Type of Edema: Degree of Edema: Gastrointestinal Symptoms GI Symtoms: Appetite Changes, Bloating, Change in Bowel Pattern Tube Present: NG Bowel Sounds: Recent Bowel Pattern: Stool Characteristics: Nutritional Diagnosis Nutritional Risk Acuity 1: GI Obstruction Past Medical History: Rheumatic aortic stenosis, senile osteoporosis, parkinson's, celiac dx, GERD, T2DM, HTN, hyperlipidemia, tremor Nutritional Acuity: 2-Moderate Nutrition Diagnosis: Altered GI Function Nutrition Etiology: Physiological Causes Nutrition Problem/Etiology/Sym: Altered GI Function related to physiological causes as evidenced by SBO and need for NPO status. Energy Requirement: 1200 ([id number]) Protein Requirement: 47 (47-51 (1-1.1 g/kg)) Fluid Requirement: 1645 (35 ml/kg) Diet Type: NPO (Nothing by Mouth) Nutrition Intervention: Incr diet as tolerated Drug: Diuretics Drug/Nutrition Recommendations: Check Serum K+ Optional Order Time?: No Diet Comment To RSA: GLUTEN FREE Nutrition Monitoring & Eval RD Patient Assessment Time: [address] Assessment Type: RD Screen Patient Nutrition Acuity: 1-High Follow Up Date: Jul 28, 2017 Nutritional Comment: 07/25 Pt admitted with abdominal pain, bloating and N/V and found to have SBO. Currently being managed by conservative measures. NPO day 2. Notable labs include Na 132, BUN 32, creatinine 1.1 and glc 148. Will cont to monitor clinical progression. COLEMAN VACA Jul 25, 2017 15:08
[2017-07-25 15:14] VITALS: BP 143/84
[2017-07-25] MEDS: LEVOFLOXACIN/D5W*500 MG/100 ML 100 ML IVPB SCH (15:22)
[2017-07-25] MEDS: NS(*) 0.9% 1000 ML BAG 1,000 ML IV PRN (15:23)
--- NOTE | 2017-07-25 15:53 | RADIOLOGY IMAGING REPORT ---
FACILITY: [facility] - [place] PATIENT NAME: Chyaa Dunne : 1930 MR: [id number] V: [id number] EXAM DATE: ORDERING PHYSICIAN: ELEN RIBERA TECHNOLOGIST: [place] [facility] [place]aya [place] : 1930 Visit/Account:[id number] Date of Sevice: 07/25/2017 Exam type: SMALL BOWEL SERIES History: SBO, small bowel inflammation on CT, water soluble only Comparison: CT abdomen and pelvis July 24, 2017. Findings: The patient was given a Gastrografin suspension to swallow. Gastrografin was followed throughout the normal-appearing small bowel to the right-sided colon. Transit time was one one hour and 45 minutes . There is no evidence of obstruction or small bowel dilatation. The fine mucosal pattern was not i deally evaluated due to the water-soluble nature with contrast. Fluoroscopy was not utilized for thi s examination IMPRESSION: 1. No evidence of small bowel obstruction Report Dictated By: Xenia Lee MD at 07/25/2017 3:39 PM Report E-Signed By: Xenia Lee MD at 07/25/2017 3:49 PM WSN:[id number]
[2017-07-25] MEDS: PANTOPRAZOLE SOD 40 MG IV VIAL IVP SCH (21:31)
[2017-07-25 22:59] VITALS: BP 149/79
[2017-07-26] MEDS: metroNIDAZOLE* 500MG/100ML BAG 100 ML IVPB SCH ×3 (00:47→16:42)
[2017-07-26 02:20] VITALS: BP 107/60
[2017-07-26] MEDS: NS(*) 0.9% 1000 ML BAG 1,000 ML IV PRN (06:06)
--- NOTE | 2017-07-26 06:16 | RADIOLOGY IMAGING REPORT ---
FACILITY: [facility] - [place] PATIENT NAME: Chaya Dunne : 1930 MR: [id number] V: [id number] EXAM DATE: ORDERING PHYSICIAN: ELEN RIBERA TECHNOLOGIST: Location: [facility] Patient: Chaya Dunne : 1930 Visit/Account:[id number] Date of Sevice: 07/26/2017 Abdomen: Indication: Possible small bowel obstruction. Technique: A single supine film was obtained. Comparison: Small bowel series dated 07/25/2017 Findings: Residual opaque contrast material is present in the colon, which is not dilated. There is n o appreciable contrast or obstruction in the small intestine. The NG tube remains in the stomach. The skeletal and soft tissue structures are unchanged. Impression: No evidence of small bowel obstruction. Report Dictated By: Sandeep Navarro MD at 07/26/2017 6:09 AM Report E-Signed By: Sandeep Navarro MD at 07/26/2017 6:12 AM WSN:[id number]
[2017-07-26 07:09] LABS: PLATELET COUNT, AUTOMATED 165 K/uL (150-450)
--- NOTE | 2017-07-26 07:10 | General Surgery Progress Note ---
Subjective Progress Notes Subjective No complaints. No abdominal pain. Passing flatus and BMs. There was some concern about BRB in NG tube and question of melena last evening. Physical Exam Vital Signs Date Time Temp Pulse Resp B/P (MAP) Pulse Ox O2 Delivery O2 Flow Rate FiO2 07/26/17 04:17 95 07/26/17 02:20 97.7 18 107/60 (76) 97 Nasal Cannula 0.5 General Appearance: Alert, Awake, Afebrile GI: Other (Soft, mild TTP) Extremities: Warm, Perfused Result Diagram: 07/25/1751907/25/17519 Assessment and Plan Problems: (1) Small bowel obstruction Status: Acute Assessment & Plan: 07/24/17: Admit, bowel rest and decompression, IV fluids. Will empirically start IV levaquin/flagyl given possible bowel wall inflammation on CT. Pt is feeling better as the day has progressed. Will repeat her KUB tomorrow and if she's no better will get a SBFT with water- soluble contrast tomorrow. If she requires surgery, i.e. she doesn't improve with conservative management, she will need to be transferred to a hospital with adequate cardiac and critical care support with intraoperative DELMY ability due to her severe . I have explained this plan to her in detail and she seems to understand and is agreeable with this plan. 07/25/17: Doing better clinically and symptomatically this morning but WBC up to 22K. Will follow this. No tachycardia (but on beta elida) no hypotension. No fevers. Lactate increased to 5 last night but has come down with fluids. Will get SBFT with water-soluble contrast today. O/W, continue NPO, IV fluids, IV abx. 07/26/17: Continued improvement. SBFT was unremarkable yesterday. Labs are still pending. Will see if WBC is coming down today, if so will d/c NG and start clear diet, if not will repeat abdominal CT. Lactate down to normal. Will see if H/H is stable, increased PPI to bid due to blood in NG and question of melena. Abdominal exam is benign and vital signs are normal, no fevers. 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 Time Spent: < 30 min Exam Sepsis Risk: No Definite Risk ELEN RIBERA MD Jul 26, 2017 07:10
[2017-07-26 07:32] VITALS: BP 134/68
[2017-07-26] MEDS: PANTOPRAZOLE SOD 40 MG IV VIAL IVP SCH ×2 (08:52→20:49)
[2017-07-26] MEDS: CARBIDOPA/LEVODOPA 25/100 TAB PO SCH ×4 (09:04→20:48)
[2017-07-26] MEDS ORDERED: NS(*) 0.9% 1000 ML BAG 1,000 ML IV PRN (09:18)
[2017-07-26] MEDS: METOPROLOL TART 50 MG TAB PO SCH ×2 (10:13→20:48)
--- NOTE | 2017-07-26 11:07 | Hospitalist Progress Note ---
Subjective Progress Notes Subjective She c/o some generalized weakness. She has had some mild dizziness when up. Some dark stools have been noted. Physical Exam Vital Signs Date Time Temp Pulse Resp B/P (MAP) Pulse Ox O2 Delivery O2 Flow Rate FiO2 07/26/17 08:20 88 07/26/17 08:02 Nasal Cannula 0.5 07/26/17 07:52 78 07/26/17 07:32 98.3 16 134/68 (90) Intake and Output 07/27/17 07:00 Intake Total 100 ml Balance 100 ml IV Total 100 ml # Voids 1 # Bowel Movements 1 General Appearance: Alert, Awake Cardiovascular: Regular Rate and Rhythm (with loud systolic murmur), No Edema Respiratory: Clear to Auscultation GI: Other (soft/BS present) Extremities: Warm, Perfused Psych: Alert & Oriented X3 Result Diagram: 07/26/1753007/26/17 05 Assessment and Plan Problems: (1) Small bowel obstruction Status: Acute Assessment & Plan: Dr. Ortega has been managing this. It appears she now has some blood loss as well. Will discuss further with Dr. Ortega. 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 She will likely be very sensitive to both hyper and hypovolemia should this occur. We would recommend that she be transferred to a facility with cardiology services if she were to require surgery. (3) Type II diabetes mellitus Status: Chronic Assessment & Plan: She is on chronic treatment with glimepiride, which is currently on hold. We are covering her with sliding scale level #2. (4) Parkinsons disease Status: Chronic Assessment & Plan: She is on chronic treatment with Sinemet and primidone. (5) Essential hypertension Status: Chronic Assessment & Plan: She is on chronic treatment with Losartan HCT and Metoprolol. The losartan HCT has been. Will change her metoprolol to 12.5mg BID. Watch BPs/HR closely. (6) CKD (chronic kidney disease) stage 3, GFR 30-59 ml/min Status: Chronic Assessment & Plan: Watch labs. Creatinine this AM is 1.0. Exam Sepsis Risk: No Definite Risk BREN MOSS MD Jul 26, 2017 11:07
[2017-07-26] MEDS ORDERED: KCL/NS* 20 MEQ/1000 ML PREMIX 1,000 ML IV PRN (11:08)
[2017-07-26 11:25] VITALS: BP 125/71
[2017-07-26] MEDS: KCL/NS* 20 MEQ/1000 ML PREMIX 1,000 ML IV PRN (11:32)
[2017-07-26] MEDS: PRIMIDONE 50 MG TAB PO SCH ×2 (13:21→20:48)
[2017-07-26] MEDS: LEVOFLOXACIN/D5W*500 MG/100 ML 100 ML IVPB SCH (15:27)
[2017-07-26 15:28] VITALS: BP 131/61
[2017-07-26 20:46] VITALS: BP 138/71
[2017-07-27] VITALS (7 sets, daily range): BP systolic 125–145; BP diastolic 59–89
[2017-07-27] MEDS: metroNIDAZOLE* 500MG/100ML BAG 100 ML IVPB SCH (00:43)
[2017-07-27] MEDS: KCL/NS* 20 MEQ/1000 ML PREMIX 1,000 ML IV PRN (05:03)
[2017-07-27 06:29] LABS: PLATELET COUNT, AUTOMATED 165 K/uL (150-450)
[2017-07-27] MEDS ORDERED: LEVOFLOXACIN 500 MG TAB PO ONE (08:15)
--- NOTE | 2017-07-27 08:19 | General Surgery Progress Note ---
Subjective Progress Notes Subjective No complaints this morning. No pain. Physical Exam Vital Signs Date Time Temp Pulse Resp B/P (MAP) Pulse Ox O2 Delivery O2 Flow Rate FiO2 07/27/17 05:04 98.0 78 18 135/59 (84) 93 Nasal Cannula 0.5 General Appearance: Alert, Awake, No Acute Distress, Afebrile GI: Other (Soft, mild abdominal TTP, no peritoneal signs) Extremities: Warm, Perfused Result Diagram: 07/27/17 0540 07/27/17 0540 Assessment and Plan Problems: (1) Small bowel obstruction Status: Acute Assessment & Plan: 07/24/17: Admit, bowel rest and decompression, IV fluids. Will empirically start IV levaquin/flagyl given possible bowel wall inflammation on CT. Pt is feeling better as the day has progressed. Will repeat her KUB tomorrow and if she's no better will get a SBFT with water- soluble contrast tomorrow. If she requires surgery, i.e. she doesn't improve with conservative management, she will need to be transferred to a hospital with adequate cardiac and critical care support with intraoperative DELMY ability due to her severe . I have explained this plan to her in detail and she seems to understand and is agreeable with this plan. 07/25/17: Doing better clinically and symptomatically this morning but WBC up to 22K. Will follow this. No tachycardia (but on beta elida) no hypotension. No fevers. Lactate increased to 5 last night but has come down with fluids. Will get SBFT with water-soluble contrast today. O/W, continue NPO, IV fluids, IV abx. 07/26/17: Continued improvement. SBFT was unremarkable yesterday. Labs are still pending. Will see if WBC is coming down today, if so will d/c NG and start clear diet, if not will repeat abdominal CT. Lactate down to normal. Will see if H/H is stable, increased PPI to bid due to blood in NG and question of melena. Abdominal exam is benign and vital signs are normal, no fevers. 07/27/17: Continued improvement. WBC down to normal. Benign abdominal exam with mild TTP. Having some melanotic stools. May be due to small bowel ischemia or PUD, no signs of active bleeding, follow. H/H down a little, follow. Regular diet today, stop IV fluids. PO pain meds and abx. 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 Time Spent: < 30 min Exam Sepsis Risk: No Definite Risk ELEN RIBERA MD Jul 27, 2017 08:19
[2017-07-27] MEDS ORDERED: ACETAMINOPHEN 325 MG TAB PO PRN (08:20)
[2017-07-27] MEDS: METRONIDAZOLE 500 MG TABLET PO SCH ×3 (08:37→21:02)
[2017-07-27] MEDS: PRIMIDONE 50 MG TAB PO SCH ×3 (08:37→21:02)
[2017-07-27] MEDS: CARBIDOPA/LEVODOPA 25/100 TAB PO SCH ×4 (08:37→21:03)
[2017-07-27] MEDS: METOPROLOL TART 50 MG TAB PO SCH ×2 (08:38→21:03)
--- NOTE | 2017-07-27 10:04 | Hospitalist Progress Note ---
Subjective Progress Notes Subjective This patient was admitted for bowel obstruction. She had no acute events overnight. Patient Complains of: Cardiovascular: No: Chest Pain Respiratory: No: Shortness of Breath Physical Exam Vital Signs Date Time Temp Pulse Resp B/P (MAP) Pulse Ox O2 Delivery O2 Flow Rate FiO2 07/27/17 08:34 97.8 78 16 141/75 (97) 97 Nasal Cannula 0.5 Intake and Output 07/28/17 07:00 Intake Total 525 ml Balance 525 ml Intake Oral 525 ml Cardiovascular: Regular Rate and Rhythm Respiratory: Clear to Auscultation Result Diagram: 07/27/17 0540 07/27/17 0540 Assessment and Plan Problems: (1) Small bowel obstruction Status: Acute Assessment & Plan: Dr. Ortega has been managing this. 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 She will likely be very sensitive to both hyper and hypovolemia should this occur. We would recommend that she be transferred to a facility with cardiology services if she were to require surgery. (3) Type II diabetes mellitus Status: Chronic Assessment & Plan: She is on chronic treatment with glimepiride, which is currently on hold. We are covering her with sliding scale level #2. (4) Parkinsons disease Status: Chronic Assessment & Plan: She is on chronic treatment with Sinemet and primidone. (5) Essential hypertension Status: Chronic Assessment & Plan: She is on chronic treatment with Losartan HCT and Metoprolol. The losartan HCT has been on discontinued. She has been started on metoprolol. (6) CKD (chronic kidney disease) stage 3, GFR 30-59 ml/min Status: Chronic Exam Sepsis Risk: No Definite Risk ELEN AVENDANO DO Jul 27, 2017 10:04
[2017-07-28 04:07] VITALS: BP 141/60
[2017-07-28 05:50] LABS: PLATELET COUNT, AUTOMATED 161 K/uL (150-450)
--- NOTE | 2017-07-28 08:33 | General Surgery Progress Note ---
Subjective Progress Notes Subjective Ate better last night, didn't sleep well. Physical Exam Vital Signs Date Time Temp Pulse Resp B/P (MAP) Pulse Ox O2 Delivery O2 Flow Rate FiO2 07/28/17 04:07 97.5 70 16 141/60 (87) 92 Nasal Cannula 0.5 General Appearance: Alert, Awake ENT: Normal, Moist Mucous Membranes Cardiovascular: Normal Rhythm & Peripheral Pulses Respiratory: No Respiratory Distress, Clear to Auscultation GI: Soft and Non-Tender, Other (bowel sounds present) Extremities: Soft and Non Tender Integumentary: Skin Intact without Lesion / Mass Psych: Alert & Oriented X3, Appropriate Mood & Affect Result Diagram: 07/28/1751307/28/17513 Assessment and Plan Problems: (1) Small bowel obstruction Status: Acute Assessment & Plan: 07/24/17: Admit, bowel rest and decompression, IV fluids. Will empirically start IV levaquin/flagyl given possible bowel wall inflammation on CT. Pt is feeling better as the day has progressed. Will repeat her KUB tomorrow and if she's no better will get a SBFT with water- soluble contrast tomorrow. If she requires surgery, i.e. she doesn't improve with conservative management, she will need to be transferred to a hospital with adequate cardiac and critical care support with intraoperative DELMY ability due to her severe . I have explained this plan to her in detail and she seems to understand and is agreeable with this plan. 07/25/17: Doing better clinically and symptomatically this morning but WBC up to 22K. Will follow this. No tachycardia (but on beta elida) no hypotension. No fevers. Lactate increased to 5 last night but has come down with fluids. Will get SBFT with water-soluble contrast today. O/W, continue NPO, IV fluids, IV abx. 07/26/17: Continued improvement. SBFT was unremarkable yesterday. Labs are still pending. Will see if WBC is coming down today, if so will d/c NG and start clear diet, if not will repeat abdominal CT. Lactate down to normal. Will see if H/H is stable, increased PPI to bid due to blood in NG and question of melena. Abdominal exam is benign and vital signs are normal, no fevers. 07/27/17: Continued improvement. WBC down to normal. Benign abdominal exam with mild TTP. Having some melanotic stools. May be due to small bowel ischemia or PUD, no signs of active bleeding, follow. H/H down a little, follow. Regular diet today, stop IV fluids. PO pain meds and abx 07/28/17: Ate better last night. WBC wnl. Abdominal exam improved. Passing flatus, continues to have dark stools. Continue regular diet, PO abx. OOB, work with therapy today. Sodium down today, will trend. 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
[2017-07-28 08:55] VITALS: BP 141/87
[2017-07-28] MEDS: METOPROLOL TART 50 MG TAB PO SCH ×2 (08:57→20:50)
[2017-07-28] MEDS: CARBIDOPA/LEVODOPA 25/100 TAB PO SCH ×4 (08:57→20:50)
[2017-07-28] MEDS: PRIMIDONE 50 MG TAB PO SCH ×3 (08:58→20:50)
[2017-07-28] MEDS: METRONIDAZOLE 500 MG TABLET PO SCH ×3 (08:58→20:50)
[2017-07-28 11:42] VITALS: BP 137/64
--- NOTE | 2017-07-28 13:03 | Medical Nutrition Therapy ---
Nutrition Anthropometrics Height (Inches): 59.00 Height (Calculated Centimeters: 149.615072 Weight (Pounds): 113 Weight (Calculated Kilograms): 51.313 BMI Calculated: 21.21 Edmond Nutrition Score: Adequate Edmond Nutrition Risk Score: 21 Dietary Referral Nutrition Risk Factors: Nutrition Risk Comment: Physical Findings Physical Appearance: BMI 21 Skin Appearance Skin Appearance: Edema Edema Location Modifier: Edema Location: Type of Edema: Degree of Edema: Gastrointestinal Symptoms GI Symtoms: Appetite Changes, Change in Bowel Pattern Tube Present: NG Bowel Sounds: Recent Bowel Pattern: Stool Characteristics: Nutrition/Food History N/V Nutritional Diagnosis Nutritional Risk Acuity 1: GI Obstruction Nutritional Risk Acuity 3: Fair Appetite Past Medical History: Rheumatic aortic stenosis, senile osteoporosis, parkinson's, celiac dx, GERD, T2DM, HTN, hyperlipidemia, tremor Nutritional Acuity: 2-Moderate Nutrition Diagnosis: Altered GI Function Nutrition Etiology: Physiological Causes Nutrition Problem/Etiology/Sym: Altered GI Function related to physiological causes as evidenced by SBO and need for NPO status. Energy Requirement: 1200 ([id number]) Protein Requirement: 47 (47-51 (1-1.1 g/kg)) Fluid Requirement: 1645 (35 ml/kg) Diet Type: NPO (Nothing by Mouth) Nutrition Intervention: Incr diet as tolerated Drug: Diuretics Drug/Nutrition Recommendations: Check Serum K+ Optional Order Time?: No Diet Comment To RSA: GLUTEN FREE Nutrition Monitoring & Eval Nutrition Goals: Eat 75-100% Meal RD Patient Assessment Time: [address] Assessment Type: RD Re-Assessment Patient Nutrition Acuity: 1-High Follow Up Date: Jul 31, 2017 Nutritional Comment: 07/25 Pt admitted with abdominal pain, bloating and N/V and found to have SBO. Currently being managed by conservative measures. NPO day 2. Notable labs include Na 132, BUN 32, creatinine 1.1 and glc 148. Will cont to monitor clinical progression. 07/28 Low Ca/Na, Glu 126. Pt now receiving FELIPE and consuming 75-100% of meals. Follow labs, intake, etc. NENO CHRISTIAN Jul 28, 2017 13:03
--- NOTE | 2017-07-28 13:21 | Hospitalist Progress Note ---
Subjective Progress Notes Subjective Feeling better overall. Ate breakfast without issues. Physical Exam Vital Signs Date Time Temp Pulse Resp B/P (MAP) Pulse Ox O2 Delivery O2 Flow Rate FiO2 07/28/17 11:42 98.3 69 18 137/64 (88) 92 Room Air 07/28/17 08:55 0.5 Intake and Output 07/29/17 07:00 # Voids 1 # Bowel Movements 1 General Appearance: Alert, Awake Cardiovascular: Regular Rate and Rhythm Respiratory: Clear to Auscultation GI: Other (Soft, BS +. Mild tenderness to palpation over the right side of abdomen without mass, rebound or guarding.) Extremities: Warm, Perfused Psych: Alert & Oriented X3, Appropriate Mood & Affect Result Diagram: 07/28/1751307/28/17513 Assessment and Plan Problems: (1) Small bowel obstruction Status: Acute Assessment & Plan: Dr. Ortega has been managing this. 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 She will likely be very sensitive to both hyper and hypovolemia should this occur. We would recommend that she be transferred to a facility with cardiology services if she were to require surgery. (3) Type II diabetes mellitus Status: Chronic Assessment & Plan: She is on chronic treatment with glimepiride, which is currently on hold. We are covering her with sliding scale level #2. (4) Parkinsons disease Status: Chronic Assessment & Plan: She is on chronic treatment with Sinemet and primidone. (5) Essential hypertension Status: Chronic Assessment & Plan: She is on chronic treatment with Losartan HCT and Metoprolol. The losartan HCT has been on discontinued. She has been started on metoprolol at a much lower dose of 12.5mg bid. Her BPs have been controlled. (6) CKD (chronic kidney disease) stage 3, GFR 30-59 ml/min Status: Chronic Assessment & Plan: Creatinine is 0.9 today. Time Spent on Plan of Care: < 30 min Exam Sepsis Risk: No Definite Risk JOSEF OMSS MD Jul 28, 2017 13:21
[2017-07-28 16:09] VITALS: BP 153/75
[2017-07-28 19:17] VITALS: BP 158/97
[2017-07-28 23:15] VITALS: BP 156/63
[2017-07-29 05:21] VITALS: BP 165/69
[2017-07-29 06:04] LABS: PLATELET COUNT, AUTOMATED 182 K/uL (150-450)
[2017-07-29 06:48] VITALS: BP 141/62
--- NOTE | 2017-07-29 08:25 | General Surgery Progress Note ---
Subjective Progress Notes Subjective Eating much better, ambulating around unit yesterday with walker. Pt has not chosen home health care yet. Physical Exam Vital Signs Date Time Temp Pulse Resp B/P (MAP) Pulse Ox O2 Delivery O2 Flow Rate FiO2 07/29/17 06:48 98.7 72 12 141/62 (88) 94 Nasal Cannula 1.0 General Appearance: Alert, Awake Cardiovascular: Normal Rhythm & Peripheral Pulses Respiratory: No Respiratory Distress GI: Soft and Non-Tender (less distended, nontender throughout) Extremities: Soft and Non Tender Integumentary: Skin Intact without Lesion / Mass Psych: Alert & Oriented X3, Appropriate Mood & Affect Result Diagram: 07/29/1751807/29/17518 Assessment and Plan Problems: (1) Small bowel obstruction Status: Acute Assessment & Plan: 07/24/17: Admit, bowel rest and decompression, IV fluids. Will empirically start IV levaquin/flagyl given possible bowel wall inflammation on CT. Pt is feeling better as the day has progressed. Will repeat her KUB tomorrow and if she's no better will get a SBFT with water- soluble contrast tomorrow. If she requires surgery, i.e. she doesn't improve with conservative management, she will need to be transferred to a hospital with adequate cardiac and critical care support with intraoperative DELMY ability due to her severe . I have explained this plan to her in detail and she seems to understand and is agreeable with this plan. 07/25/17: Doing better clinically and symptomatically this morning but WBC up to 22K. Will follow this. No tachycardia (but on beta elida) no hypotension. No fevers. Lactate increased to 5 last night but has come down with fluids. Will get SBFT with water-soluble contrast today. O/W, continue NPO, IV fluids, IV abx. 07/26/17: Continued improvement. SBFT was unremarkable yesterday. Labs are still pending. Will see if WBC is coming down today, if so will d/c NG and start clear diet, if not will repeat abdominal CT. Lactate down to normal. Will see if H/H is stable, increased PPI to bid due to blood in NG and question of melena. Abdominal exam is benign and vital signs are normal, no fevers. 07/27/17: Continued improvement. WBC down to normal. Benign abdominal exam with mild TTP. Having some melanotic stools. May be due to small bowel ischemia or PUD, no signs of active bleeding, follow. H/H down a little, follow. Regular diet today, stop IV fluids. PO pain meds and abx 07/28/17: Ate better last night. WBC wnl. Abdominal exam improved. Passing flatus, continues to have dark stools. Continue regular diet, PO abx. OOB, work with therapy today. Sodium down today, will trend. 07/29/17: Doing much better. Exam improved, did well with PT/OT though still recommending home health. d/c abx after today, if home health can be arranged, will d/c to home today. 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
[2017-07-29] MEDS: PRIMIDONE 50 MG TAB PO SCH ×3 (08:29→20:35)
[2017-07-29] MEDS: METRONIDAZOLE 500 MG TABLET PO SCH ×3 (08:29→20:35)
[2017-07-29] MEDS: CARBIDOPA/LEVODOPA 25/100 TAB PO SCH ×4 (08:29→20:35)
[2017-07-29] MEDS: METOPROLOL TART 50 MG TAB PO SCH ×2 (08:30→20:35)
[2017-07-29] MEDS ORDERED: METO25TA93 PO (10:50)
--- NOTE | 2017-07-29 10:59 | Hospitalist Progress Note ---
Subjective Progress Notes Subjective She reports doing well. No CP/SOB. Physical Exam Vital Signs Date Time Temp Pulse Resp B/P (MAP) Pulse Ox O2 Delivery O2 Flow Rate FiO2 07/29/17 08:34 92 07/29/17 08:16 Nasal Cannula 0.5 07/29/17 06:48 98.7 72 12 141/62 (88) Intake and Output 07/30/17 07:00 # Voids 2 # Bowel Movements 2 General Appearance: Alert, Awake Cardiovascular: Regular Rate and Rhythm (with systolic murmur) Respiratory: Clear to Auscultation GI: Soft and Non-Tender Result Diagram: 07/29/1751807/29/17518 Assessment and Plan Problems: (1) Small bowel obstruction Status: Acute Assessment & Plan: As per surgery. 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 She will be following up with Dr. Arguello and Dr. Wm Malloy (cardiology). (3) Type II diabetes mellitus Status: Chronic Assessment & Plan: She is on chronic treatment with glimepiride, which will be resumed. (4) Parkinsons disease Status: Chronic Assessment & Plan: She is on chronic treatment with Sinemet and primidone. (5) Essential hypertension Status: Chronic Assessment & Plan: She had been on chronic treatment with Losartan HCT and Metoprolol. The losartan HCT has been on discontinued. She has also been started on metoprolol at a much lower dose of 12.5mg bid. Her BPs have been controlled. (6) CKD (chronic kidney disease) stage 3, GFR 30-59 ml/min Status: Chronic Assessment & Plan: Creatinine is stable at 0.8 today. Exam Sepsis Risk: No Definite Risk BREN MOSS MD Jul 29, 2017 10:59
[2017-07-29 12:03] VITALS: BP 150/80
[2017-07-29 15:33] VITALS: BP 140/60
[2017-07-29 19:01] VITALS: BP 140/60
[2017-07-30 03:17] VITALS: BP 143/59
--- NOTE | 2017-07-30 05:53 | Hospitalist Progress Note ---
Subjective Progress Notes Subjective No new complaints or problems reported. She is planning on discharge today. Physical Exam Vital Signs Date Time Temp Pulse Resp B/P (MAP) Pulse Ox O2 Delivery O2 Flow Rate FiO2 07/30/17 03:17 98.2 73 16 143/59 (87) 92 Room Air 07/29/17 19:44 0.5 General Appearance: Alert, Awake Result Diagram: 07/29/1751807/29/17518 Assessment and Plan Problems: (1) Small bowel obstruction Status: Acute Assessment & Plan: As per surgery. 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 She will be following up with Dr. Arguello and Dr. Wm Malloy (cardiology). (3) Type II diabetes mellitus Status: Chronic Assessment & Plan: She is on chronic treatment with glimepiride, which will be resumed. (4) Parkinsons disease Status: Chronic Assessment & Plan: She is on chronic treatment with Sinemet and primidone. (5) Essential hypertension Status: Chronic Assessment & Plan: She had been on chronic treatment with Losartan HCT and Metoprolol. The losartan HCT has been on discontinued. She has also been started on metoprolol at a much lower dose of 12.5mg bid. Her BPs have been controlled. (6) CKD (chronic kidney disease) stage 3, GFR 30-59 ml/min Status: Chronic Assessment & Plan: Creatinine is stable. Exam Sepsis Risk: No Definite Risk BREN MOSS MD Jul 30, 2017 05:53
[2017-07-30 07:58] VITALS: BP 139/73
[2017-07-30] MEDS ORDERED: METR-160 PO (08:01)
[2017-07-30] MEDS ORDERED: LEVO-85 PO (08:01)
--- NOTE | 2017-07-30 08:03 | Short(Outpt) Discharge Summary ---
Discharge Summary Reason for Hosp/Final Diag: (1) Small bowel obstruction Status: Acute Hospital Course & Plan: 07/24/17: Admit, bowel rest and decompression, IV fluids. Will empirically start IV levaquin/flagyl given possible bowel wall inflammation on CT. Pt is feeling better as the day has progressed. Will repeat her KUB tomorrow and if she's no better will get a SBFT with water- soluble contrast tomorrow. If she requires surgery, i.e. she doesn't improve with conservative management, she will need to be transferred to a hospital with adequate cardiac and critical care support with intraoperative DELMY ability due to her severe . I have explained this plan to her in detail and she seems to understand and is agreeable with this plan. 07/25/17: Doing better clinically and symptomatically this morning but WBC up to 22K. Will follow this. No tachycardia (but on beta elida) no hypotension. No fevers. Lactate increased to 5 last night but has come down with fluids. Will get SBFT with water-soluble contrast today. O/W, continue NPO, IV fluids, IV abx. 07/26/17: Continued improvement. SBFT was unremarkable yesterday. Labs are still pending. Will see if WBC is coming down today, if so will d/c NG and start clear diet, if not will repeat abdominal CT. Lactate down to normal. Will see if H/H is stable, increased PPI to bid due to blood in NG and question of melena. Abdominal exam is benign and vital signs are normal, no fevers. 07/27/17: Continued improvement. WBC down to normal. Benign abdominal exam with mild TTP. Having some melanotic stools. May be due to small bowel ischemia or PUD, no signs of active bleeding, follow. H/H down a little, follow. Regular diet today, stop IV fluids. PO pain meds and abx 07/28/17: Ate better last night. WBC wnl. Abdominal exam improved. Passing flatus, continues to have dark stools. Continue regular diet, PO abx. OOB, work with therapy today. Sodium down today, will trend. 07/29/17: Doing much better. Exam improved, did well with PT/OT though still recommending home health. d/c abx after today, if home health can be arranged, will d/c to home today. 07/30/17: No abdominal pain, tolerating diet although not eating much. Vitals look good. Will d/c to home today with home health and home PT. 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 Departure Discharge to: Home Health Discharge Instructions Home Meds Active Scripts Metronidazole (METRONIDAZOLE) 500 Mg Tablet, 1 TAB PO TID, #20 TAB 0 Refills Prov:ELEN RIBERA MD 07/30/17 Levofloxacin 500 Mg Tab (LEVAQUIN 500 MG TAB) 500 Mg Tablet, 1 TAB PO QDAY, #7 TAB 0 Refills Prov:ELEN RIBERA MD 07/30/17 Metoprolol Tartrate (METOPROLOL TARTRATE) 25 Mg Tablet, 12.5 MG PO BID, #30 TAB 1 Refill Prov:BREN MOSS MD 07/29/17 Losartan/Hydrochlorothiazide (LOSARTAN-HCTZ 100-25 MG TAB) 1 Each Tablet, 1 EACH PO QDAY, #90 TAB 4 Refills Prov:MARSHA BARRAGAN MD 03/15/17 Lancets (LANCETS) 1 Each Each, 1 EACH MC DAILY, #100 9 Refills Use once a day to test blood sugar Prov:MARSHA BARRAGAN MD 12/29/16 Blood Sugar Diagnostic (ONE TOUCH ULTRA TEST STRIPS) 1 Each Strip, 1 EACH MC BID , #100 STRIP 6 Refills Prov:MARSHA BARRAGAN MD 12/28/16 Simvastatin (SIMVASTATIN) 20 Mg Tablet, 1 TAB PO HS, #90 TAB 4 Refills Prov:MARSHA BARRAGAN MD 10/17/16 Glimepiride (GLIMEPIRIDE) 2 Mg Tablet, 2 MG PO QDAY, #90 TAB 3 Refills Prov:MARSHA BARRAGAN MD 09/28/16 Metoprolol Succinate (TOPROL XL) 50 Mg Tab.er.24h, 1 TAB PO QDAY, #90 TAB 3 Refills Prov:MARSHA BARRAGAN MD 09/28/16 Omeprazole (OMEPRAZOLE) 20 Mg Capsule.dr, 1 CAP PO QDAY, #90 CAP 4 Refills Prov:MARSHA BARRAGAN MD 08/09/16 Carbidopa/Levodopa (CARBIDOPA-LEVODOPA 25-100 TAB) 1 Each Tablet, 1 EACH PO QID , #0 TAB Prov:MARSHA BARRAGAN MD 06/19/16 Reported Medications Cholecalciferol (Vitamin D3) (VITAMIN D3) 1,000 Unit Tablet, 2000 UNIT PO DAILY , TAB 07/24/17 Aspirin (ASPIRIN) 81 Mg Tab.chew, 81 MG PO QDAY, TAB.CHEW 07/24/17 Denosumab (PROLIA) 60 Mg/1 Ml Injs, 60 MG SUBQ 07/24/17 Primidone (PRIMIDONE) 50 Mg Tab, 1 TAB PO TID, #90 TAB 12/08/14 Discontinued Reported Medications Cholecalciferol (Vitamin D3) (VITAMIN D3) 1,000 Unit Tablet, 1 TAB PO DAILY, # 100 TAB 4 Refills 07/15/14 Discontinued Scripts Alendronate Sodium (FOSAMAX) 70 Mg Tablet, 70 MG PO QWK, #14 TAB 3 Refills Prov:MARSHA BARRAGAN MD 01/30/17 Diet: Regular Activity: As Tolerated Special Instructions: If you feel like your getting worse in terms of abdominal pain, fevers, nausea/vomiting, or blood in your stools, return immediately to the emergency room for immediate evaluation. ELEN RIBERA MD Jul 30, 2017 08:03
[2017-07-30] MEDS: CARBIDOPA/LEVODOPA 25/100 TAB PO SCH ×2 (09:22→13:17)
[2017-07-30] MEDS: PRIMIDONE 50 MG TAB PO SCH ×2 (09:22→13:17)
[2017-07-30] MEDS: METOPROLOL TART 50 MG TAB PO SCH (09:22)
[2017-07-30] MEDS: METRONIDAZOLE 500 MG TABLET PO SCH ×2 (09:22→13:17)
[2017-07-30] MEDS ORDERED: LEVOFLOXACIN 500 MG TAB PO SCH (10:00)
[2017-07-30 10:55] VITALS: BP 136/69
== END 2017-07-30 14:30 | disposition home health service (06) | DRG 389 ==
LOC: ER 11:07 → MED 15:01
PROVIDERS: ADMIT Surgery; ATTEND Surgery
DX: K56.600 Partial intestinal obstruction, unspecified as to cause (principal); K92.1 Melena; I06.0 Rheumatic aortic stenosis; E11.22 Type 2 diabetes mellitus with diabetic chronic kidney disease; G20 Parkinson's disease; I12.9 Hypertensive chronic kidney disease with stage 1 through stage 4 chronic kidney disease, or unspecified chronic kidney disease; J44.9 Chronic obstructive pulmonary disease, unspecified; K21.9 Gastro-esophageal reflux disease without esophagitis; N18.3 Chronic kidney disease, stage 3 (moderate); E73.9 Lactose intolerance, unspecified; E78.5 Hyperlipidemia, unspecified; M81.0 Age-related osteoporosis without current pathological fracture; K90.0 Celiac disease; E11.3599 Type 2 diabetes mellitus with proliferative diabetic retinopathy without macular edema, unspecified eye; Z88.0 Allergy status to penicillin; Z88.8 Allergy status to other drugs, medicaments and biological substances; Z79.84 Long term (current) use of oral hypoglycemic drugs; Z90.49 Acquired absence of other specified parts of digestive tract; Z90.710 Acquired absence of both cervix and uterus; Z98.1 Arthrodesis status
CPT/HCPCS: 36415; 36416; 71046; 74018; 74177; 74250; 81001; 82040; 82150; 82247; 82310; 82374; 82435; 82565; 82947; 82948; 83605; 83690; 84075; 84132; 84155; 84295; 84450; 84460; 84484; 84520; 85025; 93005; 96361; 96374; 96375; 96376; 97161; 97165; 99284; A4353; C9113; J1650; J1956; J2405; J2550; J3010; J3480; J3490; J7030; J7040; Q9967

== ENCOUNTER → 2017-08-21 | Outpatient (CLI) | payer MEDICARE, BC ==
[2017-07-25 14:40] VITALS: BMI 21.2
[~2017-08-21] MED LIST changes: +ASPI81TA94 PO; +LEVO-85 PO; +METO25TA93 PO; +METR-160 PO
--- NOTE | 2017-08-21 16:42 | RADIOLOGY IMAGING REPORT ---
FACILITY: [facility] PATIENT NAME: MELL SALAS : [id number] MR: [id number] V: [id number] EXAM DATE: [id number] ORDERING PHYSICIAN: MARSHA BARRAGAN TECHNOLOGIST: Marichuy Gold PROCEDURE:BILATERAL DIGITAL SCREENING MAMMOGRAM WITH CAD ASSISTED INTERPRETATION & 3D TOMOSYNTHESIS COMPARISON:07/13/2016, 06/22/2014, 10/24/2011 INDICATIONS:screening TECHNIQUE:Routine CC & MLO views of both breasts were performed FINDINGS: The breast tissue is heterogeneously dense. There is no dominant mass or suspicious microcalcifications in either breast. Benign vascular calcifications are noted. DIAGNOSTIC CATEGORY 1--NEGATIVE. RECOMMENDATIONS: ROUTINE MAMMOGRAM IN 1 YEAR AND CLINICAL EVALUATION. IMPRESSION: BIRADS 1: Negative. Dictated by: Lew Bruce M.D. on 08/21/2017 at 14:45 Transcribed by: BIJAL on 08/21/2017 at 14:54 Approved by: Lew Bruce M.D. on 08/21/2017 at 16:40 [facility]
== END ==
LOC: MAMO 02:22
PROVIDERS: ATTEND Emergency Medicine
DX: Z12.31 Encounter for screening mammogram for malignant neoplasm of breast (principal)
CPT/HCPCS: 77063; 77067

== ENCOUNTER → 2017-09-14 | Outpatient (CLI) | payer MEDICARE, BC ==
[2017-07-25 14:40] VITALS: BMI 21.2
[~2017-09-14] MED LIST changes: +CALC500T6 PO; +GOLYTE PO
== END ==
LOC: LAB 08:53
PROVIDERS: ATTEND Emergency Medicine
DX: E11.9 Type 2 diabetes mellitus without complications (principal)
CPT/HCPCS: 36415; 83036

== ENCOUNTER 2017-10-03 00:12 | Day surgery (SDC) | payer MEDICARE, BC ==
[2017-07-25 14:40] VITALS: Ht 152.4 cm; Wt 45.8 kg
[~2017-10-03] VITALS: Ht 152.4 cm; Wt 45.8 kg
[2017-10-03] VITALS (9 sets, daily range): BP systolic 100–166; BP diastolic 44–122
[2017-10-03 06:42] LABS: PLATELET COUNT, AUTOMATED 229 K/uL (150-450)
[2017-10-03] MEDS ORDERED: LIDOCAINE/SOD BICARB 8.4% SYR ID ONE (08:40)
[2017-10-03] MEDS ORDERED: NORMOSOL R SOLN(*) 1000 ML BAG 1,000 ML IV PRN (08:40)
[2017-10-03] MEDS ORDERED: PROPOFOL EMUL(*) 10MG/ML 20 ML 60 ML ONE (09:00)
--- NOTE | 2017-10-03 09:28 | Short(Outpt) Discharge Summary ---
Discharge Summary Reason for Hosp/Final Diag: (1) Colon cancer screening Status: Chronic Hospital Course & Plan: Colonoscopy with polypectomy x1 completed without any problems. Departure Discharge to: Home, Self Care Discharge Instructions Home Meds Active Scripts Peg/Electrolytes (GOLYTELY SOLUTION) 4,000 Ml Soln, 4000 ML PO ONCE, #1 GAL 0 Refills Prov:MARSHA BARRAGAN MD 09/25/17 Metoprolol Tartrate (METOPROLOL TARTRATE) 25 Mg Tablet, 12.5 MG PO BID, #30 TAB 1 Refill Prov:BREN MOSS MD 07/29/17 Lancets (LANCETS) 1 Each Each, 1 EACH MC DAILY, #100 9 Refills Use once a day to test blood sugar Prov:MARSHA BARRAGAN MD 12/29/16 Blood Sugar Diagnostic (ONE TOUCH ULTRA TEST STRIPS) 1 Each Strip, 1 EACH MC BID , #100 STRIP 6 Refills Prov:MARSHA BARRAGAN MD 12/28/16 Simvastatin (SIMVASTATIN) 20 Mg Tablet, 1 TAB PO HS, #90 TAB 4 Refills Prov:MARSHA BARRAGAN MD 10/17/16 Glimepiride (GLIMEPIRIDE) 2 Mg Tablet, 2 MG PO QDAY, #90 TAB 3 Refills Prov:MARSHA BARRAGAN MD 09/28/16 Omeprazole (OMEPRAZOLE) 20 Mg Capsule.dr, 1 CAP PO QDAY, #90 CAP 4 Refills Prov:MARSHA BARRAGAN MD 08/09/16 Carbidopa/Levodopa (CARBIDOPA-LEVODOPA 25-100 TAB) 1 Each Tablet, 1 EACH PO QID , #0 TAB Prov:MARSHA BARRAGAN MD 06/19/16 Reported Medications Calcium Carbonate (CALCIUM) 500 Mg Tablet, 2000 MG PO BID 08/28/17 Cholecalciferol (Vitamin D3) (VITAMIN D3) 1,000 Unit Tablet, 2000 UNIT PO DAILY , TAB 07/24/17 Aspirin (ASPIRIN) 81 Mg Tab.chew, 81 MG PO QODAY, TAB.CHEW 07/24/17 Denosumab (PROLIA) 60 Mg/1 Ml Injs, 60 MG SUBQ 07/24/17 Primidone (PRIMIDONE) 50 Mg Tab, 1 TAB PO TID, #90 TAB 12/08/14 Diet: Regular Activity: As Tolerated Special Instructions: Your colonoscopy was completed without any problems and your prep was excellent (Good Job!!). I removed a single polyp from your colon and it was sent to pathology. My office will call you in the next week and let you know what the polyp is but in any case, I didn't find any other abnormalities and the polyp was small so this should be your last colonoscopy. I did leave small metal clips in your colon at the biopsy site to help it heal without any bleeding. These should fall out in the next 2 weeks and will be in your stool but are so small and you may not notice them. You should not undergo an MRI for the next 30 days and until they fall out, they will be visible on x-rays or CT scans. ELEN RIBERA MD October 03, 2017 09:28
== END 2017-10-03 11:26 | disposition home health service (06) ==
LOC: OR 00:12
PROVIDERS: ATTEND Surgery
DX: Z12.11 Encounter for screening for malignant neoplasm of colon (principal); D12.2 Benign neoplasm of ascending colon
CPT/HCPCS: 00811; 36415; 45385; 85025; 88305; J2704; 82310; 82374; 82435; 82565; 82947; 84132; 84295; 84520

== ENCOUNTER → 2017-10-23 | Outpatient (CLI) | payer MEDICARE, BC ==
[2017-07-25 14:40] VITALS: BMI 21.2
--- NOTE | 2017-10-24 15:12 | RADIOLOGY IMAGING REPORT ---
[place] [facility] [place] NAME: MELL SALAS : [id number] MR: [id number] V: [id number] EXAM DATE: [id number] ORDERING PHYSICIAN: EVENS MARTINEZ TECHNOLOGIST: Amado Gleason EXAMINATION:TWO-DIMENSIONAL ECHOCARDIOGRAPH REASON:RHEUMATIC AORTIC STENOSIS 2D Measurements (normal values in centimeters) LV endLV endRV endVent.LV PostAorticLeftPercent DiastolicSystolicDiastolicSeptumWallRootAtriumShortening (3.5-5.7)(0.9-2.6)(0.6-1.1)(0.6-1.1)(2.0-3.7)(1.9-4.0)(25-35%) [id number]% STROKE VOLUME: 30ml ESTIMATED EJECTION FRACTION:74-77% LEFT VENTRICLE: Chamber size is normal but there is moderate septal LVH with an LVOT gradient reaching 10mm Hg, inferior wall appears mildly thickened. Ejection fraction >70%. Grade 2 diastolic dysfunction. RIGHT VENTRICLE: Normal size & function. RIGHT ATRIUM: Normal size & function. LEFT ATRIUM: Normal size & function. AORTIC VALVE: Heavily calcified with severe aortic stenosis indicated by mean gradient of 40mm Hg, maximum velocity of 408cm/sec. Moderate aortic regurgitation. PULMONIC VALVE: Nor well visualizes but no evidence of significant stenosis or regurgitation. MITRAL VALVE: Mild amount of regurgitation with no evidence of significant stenosis. TRICUSPID VALVE: Mild regurgitation, RVSP 30mm Hg. AORTA: Normal size without aneurysm. PERICARDIUM: Without significant effusion. EXTRACARDIAC STRUCTURES: No evidence of pleural effusion. OVERALL IMPRESSION: 1. Ejection fraction > 70% but moderate septal hypertrophy with an LVOT gradient of 10mm HG. 2. Severe aortic stenosis. 3. Moderate aortic regurgitation. 4. Mild mitral regurgitation. 5. Compared to prior echo 12/26/16, LVH appears to have progressed significantly with mild LVOT gradient. Aortic stenosis still appears to be severe, aortic regurgitation unchanged. Dictated by: Joaquín Christopher M.D. on 10/23/2017 at 15:33 Transcribed by: BIJAL on 10/24/2017 at 7:36 Approved by: Joaquín Christopher M.D. on 10/24/2017 at 15:10 [facility]
== END ==
LOC: US 00:41
PROVIDERS: ATTEND Internal Medicine Cardiovascular Disease
DX: I35.2 Nonrheumatic aortic (valve) stenosis with insufficiency (principal); I34.0 Nonrheumatic mitral (valve) insufficiency
CPT/HCPCS: 93306

== ENCOUNTER 2017-12-11 12:27 | Emergency (ER) | payer MEDICARE, BC ==
[2017-07-25 14:40] VITALS: Wt 46.9 kg
--- NOTE | 2017-12-11 13:27 | RADIOLOGY IMAGING REPORT ---
FACILITY: [facility] [place] PATIENT NAME: Chaya Dunne : 1930 MR: [id number] V: [id number] EXAM DATE: ORDERING PHYSICIAN: SAHARA EATON TECHNOLOGIST: Location[place] [facility] [place] Patient: Chaya Dunne : 1930 Visit/Account:[id number] Date of Sevice: 12/11/2017 CHEST PA AND LAT History: chest pain - resolved FINDINGS: Comparison studies: Chest x-ray 07/24/2017 Tubes and Lines: None. Lungs and pleura: Lungs are hyperaerated. Several small calcified granulomas noted. No evidence o f focal consolidation. Mediastinum: normal. Cardiac silhouette: normal . Osseous structures: Cortical anchors over the right humeral head unchanged. Mild spondylitic boothe es through the thoracolumbar spine. IMPRESSION: COPD. No acute cardiopulmonary pathology identified. Report Dictated By: Sp Orona MD at 12/11/2017 1:20 PM Report E-Signed By: Sp Orona MD at 12/11/2017 1:22 PM WSN:[id number]
[2017-12-11 14:05] LABS: PLATELET COUNT, AUTOMATED 216 K/uL (150-450)
[2017-12-11 16:00] VITALS: BP 168/80
--- NOTE | 2017-12-11 16:00 | ER Report ---
History and Physical Time Seen By MD: 12:30 Hx. of Stated Complaint: PT REPORTS WEAKNESS, CHEST PAIN. CHEST PAIN NOW ABSENT. 324PO ASPIRIN ADMIN BY EMS HPI/SEE Faye 87-year-old female the history of COPD and hypertension as well as aortic stenosis. She was brought to the ED by ambulance after experiencing approximately 10 minutes of sharp left-sided chest pain. At the time of the pain , she was sitting at her dining table. No exertion. No syncope. No SOB or nausea. She describes the pain as sharp in nature It radiated around her left lower chest to her left breast. No recent trauma. No fever/chills. Pain was self resolved upon arrival to the ED. She was given ASA by EMS. SHe took her BP meds today already. Remainder of the 14 system rev: Yes Allergies: Coded Allergies: celecoxib (Unverified Allergy, Mild, SKIN RASH, 09/25/17) amoxicillin (Unverified Allergy, Unknown, SKIN RASH, 09/25/17) clavulanic acid (Unverified Allergy, Unknown, SKIN RASH, 09/25/17) gluten (Verified Allergy, Unknown, 09/06/15) nitrofurantoin (Unverified Allergy, Unknown, SKIN RASH, 09/25/17) Home Meds Active Scripts Omeprazole (OMEPRAZOLE) 20 Mg Capsule.dr, 1 CAP PO QDAY, #90 CAP 3 Refills Prov:MARSHA BARRAGAN MD 11/16/17 Glimepiride (GLIMEPIRIDE) 2 Mg Tablet, 2 MG PO QDAY, #90 TAB 2 Refills Prov:MARSHA BARRAGAN MD 10/25/17 Metoprolol Tartrate (METOPROLOL TARTRATE) 25 Mg Tablet, 12.5 MG PO BID, #90 TAB 3 Refills Prov:MARSHA BARRAGAN MD 10/11/17 Lancets (LANCETS) 1 Each Each, 1 EACH MC DAILY, #100 9 Refills Use once a day to test blood sugar Prov:MARSHA BARRAGAN MD 12/29/16 Blood Sugar Diagnostic (ONE TOUCH ULTRA TEST STRIPS) 1 Each Strip, 1 EACH MC BID , #100 STRIP 6 Refills Prov:MARSHA BARRAGAN MD 12/28/16 Simvastatin (SIMVASTATIN) 20 Mg Tablet, 1 TAB PO HS, #90 TAB 4 Refills Prov:MARSHA BARRAGAN MD 10/17/16 Carbidopa/Levodopa (CARBIDOPA-LEVODOPA 25-100 TAB) 1 Each Tablet, 1 EACH PO QID , #0 TAB Prov:MARSHA BARRAGAN MD 06/19/16 Reported Medications Calcium Carbonate (CALCIUM) 500 Mg Tablet, 2000 MG PO BID 08/28/17 Cholecalciferol (Vitamin D3) (VITAMIN D3) 1,000 Unit Tablet, 2000 UNIT PO DAILY , TAB 07/24/17 Aspirin (ASPIRIN) 81 Mg Tab.chew, 81 MG PO QODAY, TAB.CHEW 07/24/17 Denosumab (PROLIA) 60 Mg/1 Ml Injs, 60 MG SUBQ 07/24/17 Primidone (PRIMIDONE) 50 Mg Tab, 1 TAB PO TID, #90 TAB 12/08/14 Reviewed Nurses Notes: Yes Old Medical Records Reviewed: Yes Hx Smoking: No Smoking Status: Never Smoker Hx Substance Use Disorder: No Family History of: HTN Constitutional Vital Sign - Last 24 Hours 12/11/17 12/11/17 12/11/17 12/11/17 12:27 12:29 12:29 12:42 Temp 98.4 Pulse ??? 65 63 Resp 16 17 B/P (MAP) 186/79 186/79 (114) Pulse Ox 94 92 O2 Delivery Room Air 12/11/17 12/11/17 12/11/17 12/11/17 12:45 12:57 13:00 13:12 Pulse 64 62 Resp 13 16 B/P (MAP) 162/95 (117) ???/??? (1665) Pulse Ox 93 94 12/11/17 12/11/17 12/11/17 12/11/17 13:15 13:27 13:30 13:42 Pulse 63 62 Resp 9 25 B/P (MAP) 167/81 (109) 175/77 (109) Pulse Ox 97 93 12/11/17 12/11/17 12/11/17 12/11/17 13:47 14:00 14:02 14:15 Pulse 63 62 Resp 13 B/P (MAP) 163/63 (96) 165/72 (103) Pulse Ox 93 12/11/17 12/11/17 12/11/17 12/11/17 14:17 14:32 14:38 14:45 Pulse 61 ??? Resp 18 B/P (MAP) 191/80 (117) 182/83 (116) Pulse Ox 93 12/11/17 12/11/17 12/11/17 14:47 15:00 15:02 Pulse 60 62 Resp 16 15 B/P (MAP) 179/79 (112) Pulse Ox 93 93 Physical Exam General Appearance: The patient is alert, has no immediate need for airway protection and no current signs of toxicity. Eyes: Pupils equal and round no injection. Respiratory: Chest is non tender, lungs are clear to auscultation. Cardiac: regular rate and rhythm Gastrointestinal: Abdomen is soft and non tender, no masses, bowel sounds normal. Musculoskeletal: Mild TTP of the lower/lateral chest wall. Extremities have full range of motion and are non tender. Skin: No rashes or lesions. DIFFERENTIAL DIAGNOSIS: After history and physical exam differential diagnosis was considered for chest pain including but not limited to myocardial ischemia, pericarditis pulmonary embolus, chest wall pain, pleural inflammation and pulmonary infectious causes. Medical Decision Making Data Points Result Diagram: 12/11/17 1354 12/11/17 1354 Laboratory Hematology Test 12/11/17 13:54 12/11/17 15:32 Red Blood Count 4.11 M/uL (4.17-5.56) Mean Corpuscular Volume 89.4 fL (80.0-96.0) Mean Corpuscular Hemoglobin 30.4 pg (26.0-33.0) Mean Corpuscular Hemoglobin Concent 34.0 g/dL (32.0-36.0) Red Cell Distribution Width 14.0 % (11.5-14.5) Mean Platelet Volume 8.4 fL (7.2-11.1) Neutrophils (%) (Auto) 58.8 % (39.4-72.5) Lymphocytes (%) (Auto) 26.9 % (17.6-49.6) Monocytes (%) (Auto) 8.7 % (4.1-12.4) Eosinophils (%) (Auto) 4.7 % (0.4-6.7) Basophils (%) (Auto) 0.9 % (0.3-1.4) Nucleated RBC Relative Count (auto) 0.0 /100WBC Neutrophils # (Auto) 4.1 K/uL (2.0-7.4) Lymphocytes # (Auto) 1.9 K/uL (1.3-3.6) Monocytes # (Auto) 0.6 K/uL (0.3-1.0) Eosinophils # (Auto) 0.3 K/uL (0.0-0.5) Basophils # (Auto) 0.1 K/uL (0.0-0.1) Nucleated RBC Absolute Count (auto) 0.00 K/uL Sodium Level 140 mmol/L (137-145) Potassium Level 4.4 mmol/L (3.5-5.0) Chloride Level 103 mmol/L (98-107) Carbon Dioxide Level 27 mmol/L (22-31) Blood Urea Nitrogen 23 mg/dl (7-18) Creatinine 1.00 mg/dl (0.52-1.04) Glomerular Filtration Rate Calc 52.7 Random Glucose 104 mg/dl (75-110) Calcium Level 8.7 mg/dl (8.4-10.2) Total Bilirubin 0.3 mg/dl (0.2-1.3) Aspartate Amino Transf (AST/SGOT) 28 U/L (0-35) Alanine Aminotransferase (ALT/SGPT) 17 U/L (0-56) Alkaline Phosphatase 61 U/L (0-126) Total Protein 6.2 g/dl (6.3-8.2) Albumin 3.7 g/dl (3.5-5.0) Troponin I < 0.012 ng/ml Chemistry Test 12/11/17 13:54 12/11/17 15:32 White Blood Count 6.9 k/uL (4.5-11.0) Red Blood Count 4.11 M/uL (4.17-5.56) Hemoglobin 12.5 g/dL (12.0-16.0) Hematocrit 36.7 % (34.0-47.0) Mean Corpuscular Volume 89.4 fL (80.0-96.0) Mean Corpuscular Hemoglobin 30.4 pg (26.0-33.0) Mean Corpuscular Hemoglobin Concent 34.0 g/dL (32.0-36.0) Red Cell Distribution Width 14.0 % (11.5-14.5) Platelet Count 216 K/uL (150-450) Mean Platelet Volume 8.4 fL (7.2-11.1) Neutrophils (%) (Auto) 58.8 % (39.4-72.5) Lymphocytes (%) (Auto) 26.9 % (17.6-49.6) Monocytes (%) (Auto) 8.7 % (4.1-12.4) Eosinophils (%) (Auto) 4.7 % (0.4-6.7) Basophils (%) (Auto) 0.9 % (0.3-1.4) Nucleated RBC Relative Count (auto) 0.0 /100WBC Neutrophils # (Auto) 4.1 K/uL (2.0-7.4) Lymphocytes # (Auto) 1.9 K/uL (1.3-3.6) Monocytes # (Auto) 0.6 K/uL (0.3-1.0) Eosinophils # (Auto) 0.3 K/uL (0.0-0.5) Basophils # (Auto) 0.1 K/uL (0.0-0.1) Nucleated RBC Absolute Count (auto) 0.00 K/uL Glomerular Filtration Rate Calc 52.7 Calcium Level 8.7 mg/dl (8.4-10.2) Total Bilirubin 0.3 mg/dl (0.2-1.3) Aspartate Amino Transf (AST/SGOT) 28 U/L (0-35) Alanine Aminotransferase (ALT/SGPT) 17 U/L (0-56) Alkaline Phosphatase 61 U/L (0-126) Total Protein 6.2 g/dl (6.3-8.2) Albumin 3.7 g/dl (3.5-5.0) Troponin I < 0.012 ng/ml EKG/Imaging EKG Interpretation 12 lead EKG: Rhythm: normal sinus rhythm [place]: normal QRS: normal ST segments: Nonspecific T wave flattening Imaging X-ray: CXR was obtained. I viewed the images myself on the PACS system. My interpretation of the images is:no infiltrate, no pTX, no edema. The radiologist interpretation had no clinically significant variation from this interpretation. ED Course/Re-evaluation ED Course 87-year-old female with a history of aortic stenosis was brought into the emergency department by ambulance after she called them she was experiencing chest pain at home. The pain is left lateral chest wall and sharp in nature. It self resolved after approximately 10 minutes. She denies any recent trauma. She had normal lab studies to include 2 normal troponins that were taken approximately 3 hours apart. She just had a normal chest x-ray. Her EKG is unchanged. She was observed in the emergency department for approximately 5 hours, and did not experience return of her symptoms. I do not think this is cardiac, PE, infection. She does report some mild chest wall tenderness to palpation upon my physical exam, so I think this could be musculoskeletal chest wall pain. She has no urinary symptoms. I counseled her to follow up with her primary care doctor, and encouraged her that if the pain returns she should return to the emergency department Decision to Disposition Date: Dec 11, 2017 Decision to Disposition Time: 15:59 Depart Departure Latest Vital Signs Vital Signs Date Time Temp Pulse Resp B/P (MAP) Pulse Ox O2 Delivery O2 Flow Rate FiO2 12/11/17 15:02 62 15 93 12/11/17 15:00 179/79 (112) 12/11/17 12:29 98.4 Room Air Impression: Primary Impression: Acute chest wall pain Condition: Improved Disposition: HOME OR SELF-CARE Referrals: MARSHA BARRAGAN MD (PCP) Patient Instructions: Chest Wall Pain (ED) SAHARA EATON MD Dec 11, 2017 16:00
--- NOTE | 2017-12-12 10:19 | EKG ---
FACILITY: [facility] PATIENT NAME: MELL SALAS : [id number] MR: [id number] V: [id number] EXAM DATE: ORDERING PHYSICIAN: SAHARA EATON TECHNOLOGIST: PUSHPA Sampson Reason : CP Blood Pressure : / mmHG Vent. 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
== END 2017-12-11 16:05 | disposition home or self-care (01) ==
LOC: ER 12:35
DX: R07.89 Other chest pain (principal); R94.31 Abnormal electrocardiogram [ECG] [EKG]
CPT/HCPCS: 36415; 71046; 82040; 82247; 82310; 82374; 82435; 82565; 82947; 84075; 84132; 84155; 84295; 84450; 84460; 84484; 84520; 85025; 93005; 99284

== ENCOUNTER → 2017-12-11 | Outpatient (CLI) | payer MEDICARE, BC ==
[2017-07-25 14:40] VITALS: BMI 21.2
== END ==
LOC: AMB 12:03
PROVIDERS: ATTEND Nurse Practitioner
DX: R07.9 Chest pain, unspecified (principal)
CPT/HCPCS: A0425; A0427

== ENCOUNTER → 2017-12-27 | Outpatient (CLI) | payer MEDICARE, BC ==
[2017-07-25 14:40] VITALS: BMI 21.2
== END ==
LOC: LAB 09:40
PROVIDERS: ATTEND Emergency Medicine
DX: E11.9 Type 2 diabetes mellitus without complications (principal)
CPT/HCPCS: 36415; 83036

== ENCOUNTER → 2018-01-07 | Outpatient (CLI) | payer MEDICARE, BC ==
[2017-07-25 14:40] VITALS: BMI 21.2
== END ==
LOC: RESP 01:23
PROVIDERS: ATTEND Emergency Medicine
DX: J44.9 Chronic obstructive pulmonary disease, unspecified (principal)
CPT/HCPCS: 94060; 94726; 94729

== ENCOUNTER 2018-02-05 19:17 | Emergency (ER) | payer MEDICARE, BC ==
[2017-07-25 14:40] VITALS: Wt 45.4 kg
[~2018-02-05 19:17] MED LIST changes: +UMEC1DIS INH
[2018-02-05 19:26] VITALS: BP 197/90
--- NOTE | 2018-02-05 19:34 | ER Report ---
History and Physical Time Seen By : 19:31 Hx. of Stated Complaint: PT FELL THIS MORNING IN THE POWDER ROOM, STATES SHE HIT HER HEAD AND LEFT SHOULDER. PTS SHOULDER IS SWOLLEN. HPI/ROS CHIEF COMPLAINT: fall with shoulder pain HISTORY OF PRESENT ILLNESS: This is an 87 year old female. She fell this morning in the bathroom. She is complaining of pain in the left shoulder. She did say she hit here head, but has no headache or neck pain and no report of loss of consciousness. She later reported some pain in the ribs as well. No fevers or chills. No shortness of breath, but hurts to take deep breaths. Also hurts to move. Reported some pain in her spine earlier, but no pain in the spine at this time. Allergies: Coded Allergies: celecoxib (Unverified Allergy, Mild, SKIN RASH, 09/25/17) amoxicillin (Unverified Allergy, Unknown, SKIN RASH, 09/25/17) clavulanic acid (Unverified Allergy, Unknown, SKIN RASH, 09/25/17) gluten (Verified Allergy, Unknown, 09/06/15) nitrofurantoin (Unverified Allergy, Unknown, SKIN RASH, 09/25/17) Home Meds Active Scripts Cyclobenzaprine Hcl (CYCLOBENZAPRINE HCL) 10 Mg Tablet, 10 MG PO Q8H PRN for MUSCLE SPASMS, #20 TAB 0 Refills Prov:KELLY PEARSON MD 02/05/18 Umeclidinium Brm/Vilanterol Tr (Anoro Ellipta 62.5-25 Mcg INH) 1 Each Disk.w.dev, 1 EACH INH DAILY, #30 INH 0 Refills Prov:MARSHA BARRAGAN MD 01/16/18 Omeprazole (OMEPRAZOLE) 20 Mg Capsule.dr, 1 CAP PO QDAY, #90 CAP 3 Refills Prov:MARSHA BARRAGAN MD 11/16/17 Glimepiride (GLIMEPIRIDE) 2 Mg Tablet, 2 MG PO QDAY, #90 TAB 2 Refills Prov:AMRSHA BARRAGAN MD 10/25/17 Metoprolol Tartrate (METOPROLOL TARTRATE) 25 Mg Tablet, 12.5 MG PO BID, #90 TAB 3 Refills Prov:MARSHA BARRAGAN MD 10/11/17 Lancets (LANCETS) 1 Each Each, 1 EACH MC DAILY, #100 9 Refills Use once a day to test blood sugar Prov:MARSHA BARRAGAN MD 12/29/16 Blood Sugar Diagnostic (ONE TOUCH ULTRA TEST STRIPS) 1 Each Strip, 1 EACH MC BID, #100 STRIP 6 Refills Prov:MARSHA BARRAGAN MD 12/28/16 Simvastatin (SIMVASTATIN) 20 Mg Tablet, 1 TAB PO HS, #90 TAB 4 Refills Prov:MARSHA BARRAGAN MD 10/17/16 Carbidopa/Levodopa (CARBIDOPA-LEVODOPA 25-100 TAB) 1 Each Tablet, 1 EACH PO QID, #0 TAB Prov:MARSHA BARRAGAN MD 06/19/16 Reported Medications Calcium Carbonate (CALCIUM) 500 Mg Tablet, 2000 MG PO BID 08/28/17 Cholecalciferol (Vitamin D3) (VITAMIN D3) 1,000 Unit Tablet, 2000 UNIT PO DAILY, TAB 07/24/17 Aspirin (ASPIRIN) 81 Mg Tab.chew, 81 MG PO QODAY, TAB.CHEW 07/24/17 Denosumab (PROLIA) 60 Mg/1 Ml Injs, 60 MG SUBQ 07/24/17 Primidone (PRIMIDONE) 50 Mg Tab, 1 TAB PO TID, #90 TAB 12/08/14 Reviewed Nurses Notes: Yes Hx Smoking: No Smoking Status: Never Smoker Exposure to Second Hand Smoke?: Yes Hx Substance Use Disorder: No Constitutional Vital Sign - Last 24 Hours 02/05/18 02/05/18 02/05/18 02/05/18 19:22 19:26 19:32 19:47 Temp 98.7 Pulse 73 73 83 Resp 18 B/P (MAP) 197/90 197/90 (125) Pulse Ox 95 92 90 02/05/18 02/05/18 02/05/18 20:02 20:32 20:47 Pulse 69 68 70 Pulse Ox 93 91 91 Physical Exam General Appearance: Alert, Has some distress due to her pain. Eyes: Pupils equal and round no injection. ENT: Normal oral mucosa. Moist mucous membranes. Neck: Neck is supple and non tender. Respiratory: Chest is non tender, lungs are clear to auscultation. Cardiac: regular rate and rhythm. 2/6 systolic ejection murmur. Normal cap refill. Gastrointestinal: Abdomen is soft and non tender, no masses, bowel sounds normal. Musculoskeletal: Pain throughout the left shoulder. No pain over clavicle. Pain over left posterior and lateral ribs. No pain in the cervical, thoracic or lumbar spinous processes. Skin: Some swelling and bruising over the shoulder. DIFFERENTIAL DIAGNOSIS: After history and physical exam differential diagnosis was considered for fall with shoulder and rib pain. Medical Decision Making EKG/Imaging Imaging SHOULDER MIN 2 VIEWS LEFT Indication: , shoulder pain after fall Comparison: Unavailable Findings: There is no acute fracture-dislocation of the left glenohumeral joint. Limited views of the left upper lung zone are unremarkable. Moderate degenerative changes noted at the acromioclavicular joint with inferior bony spurring of the distal clavicle. IMPRESSION: 1. No acute osseous abnormality left shoulder. Report Dictated By: Mateo Can at 02/05/2018 7:59 PM 2 VIEWS CHEST INDICATION: Fall. Left rib pain. COMPARISON: 12/11/2017. FINDINGS: Cardiomediastinal silhouette and pulmonary vessels within normal limits. There is no focal infiltrate or lobar consolidation. There is no pneumothorax or pleural effusion. No nodule. Upper abdomen is unremarkable. Question of a anterior lateral left seventh rib nondisplaced fracture. No other discrete rib fractures. No acute bony abnormality. IMPRESSION: 1. No acute cardiopulmonary process. 2. Question of a nondisplaced fracture of the anterior lateral left seventh rib. Report Dictated By: Lew Segal at 02/05/2018 8:40 PM RIBS LEFT INDICATION: Fall. Left-sided rib pain.. COMPARISON: None Available. FINDINGS: A marker was placed in the region of clinical concern and 3 images of the left ribs were obtained. No acutely displaced rib fractures are identified. There is an old healed rib fracture involving the left seventh rib. This is seen on multiple projections. No other focal rib abnormality is seen. There is a scoliotic deformity of the spine with degenerative disc disease which is incompletely evaluated. Atherosclerotic calcifications involve the aorta. IMPRESSION: 1. No evidence of acutely displaced left-sided rib fracture. 2. Old healed left seventh rib fracture deformity. 3. Scoliosis and degenerative disc disease of the spine. Report Dictated By: Ángel Encinas at 02/05/2018 8:53 PM ED Course/Re-evaluation ED Course The patient had shoulder pain. Imaging obtained and negative. On re-evaluation, the patient and her daughter expressed concern about rib pain. Re-evaluation further showed no midline pain of the spine, but pain in posterior and lateral ribs. Chest and rib series obtained, negative for acute injury. Discussed conservative measured for her shoulder and ribs with follow-up if not improving. Decision to Disposition Date: Feb 05, 2018 Decision to Disposition Time: 21:18 Depart Departure Latest Vital Signs Vital Signs Date Time Temp Pulse Resp B/P (MAP) Pulse Ox O2 Delivery O2 Flow Rate FiO2 02/05/18 20:47 70 91 02/05/18 19:26 197/90 (125) 02/05/18 19:22 98.7 18 Impression: Primary Impression: Left shoulder strain Additional Impression: Contusion of rib on left side Condition: Improved Disposition: HOME OR SELF-CARE Referrals: MARSHA BARRAGAN MD (PCP) New Scripts Cyclobenzaprine Hcl (CYCLOBENZAPRINE HCL) 10 Mg Tablet 10 MG PO Q8H PRN for MUSCLE SPASMS, #20 TAB 0 Refills Prov: KELLY PEARSON MD 02/05/18 Patient Instructions: Rib Contusion (ED), Shoulder Pain (ED) Additional Instructions: Use a sling as needed to help with shoulder pain. You can use ice or heat pack as needed. Take Aleve twice a day for pain. You can use your Hydrocodone that you have at home as needed for the pain. Generally this is one tablet every 4 hours as needed for severe pain. You can also use Flexeril 10mg tablets, one every 8 hours as needed for pain. The Flexeril and Hydrocodone both can make you sleepy, so be careful when getting up and moving around to avoid further falls. Problem Qualifiers Primary Impression: Left shoulder strain Encounter type: initial encounter Qualified Codes: S46.912A - Strain of unspecified muscle, fascia and tendon at shoulder and upper arm level, left arm, initial encounter Additional Impression: Contusion of rib on left side Encounter type: initial encounter Qualified Codes: S20.212A - Contusion of left front wall of thorax, initial encounter KELLY PEARSON MD Feb 05, 2018 19:34
--- NOTE | 2018-02-05 20:03 | RADIOLOGY IMAGING REPORT ---
FACILITY: [facility] PATIENT NAME: Chaya Dunne : 1930 MR: [id number] V: [id number] EXAM DATE: ORDERING PHYSICIAN: KELLY PEARSON TECHNOLOGIST: Location: [facility] Patient: Chaya Dunne : 1930 Visit/Account:[id number] Date of Sevice: 02/05/2018 SHOULDER MIN 2 VIEWS LEFT Indication: , shoulder pain after fall Comparison: Unavailable Findings: There is no acute fracture-dislocation of the left glenohumeral joint. Limited views of the left upper lung zone are unremarkable. Moderate degenerative changes noted at the acromioclavicular joint with inferior bony spurring of the distal clavicle. IMPRESSION: 1. No acute osseous abnormality left shoulder. Report Dictated By: Mateo Can at 02/05/2018 7:59 PM Report E-Signed By: Mateo Can at 02/05/2018 8:00 PM WSN:[id number]
--- NOTE | 2018-02-05 20:47 | RADIOLOGY IMAGING REPORT ---
FACILITY: [facility] PATIENT NAME: Chaya Dunne : 1930 MR: [id number] V: [id number] EXAM DATE: ORDERING PHYSICIAN: KELLY PEARSON TECHNOLOGIST: Location: [facility] [place] Patient: Chaya Dunne : 1930 Visit/Account:[id number] Date of Sevice: 02/05/2018 2 VIEWS CHEST INDICATION: Fall. Left rib pain. COMPARISON: 12/11/2017. FINDINGS: Cardiomediastinal silhouette and pulmonary vessels within normal limits. There is no focal infiltrate or lobar consolidation. There is no pneumothorax or pleural effusion. No nodule. Upper abdomen is unremarkable. Question of a anterior lateral left seventh rib nondisplaced fracture. No other discrete rib fractures. No acute bony abnormality. IMPRESSION: 1. No acute cardiopulmonary process. 2. Question of a nondisplaced fracture of the anterior lateral left seventh rib. Report Dictated By: Lew Segal at 02/05/2018 8:40 PM Report E-Signed By: Lew Segal at 02/05/2018 8:44 PM WSN:[id number]
--- NOTE | 2018-02-05 20:59 | RADIOLOGY IMAGING REPORT ---
FACILITY: [facility] PATIENT NAME: Chaya Dunne : 1930 MR: [id number] V: [id number] EXAM DATE: ORDERING PHYSICIAN: KELLY PEARSON TECHNOLOGIST: Location: [facility] - [place] Patient: Chaya Dunne : 1930 Visit/Account:[id number] Date of Sevice: 02/05/2018 RIBS LEFT INDICATION: Fall. Left-sided rib pain.. COMPARISON: None Available. FINDINGS: A marker was placed in the region of clinical concern and 3 images of the left ribs were ob tained. No acutely displaced rib fractures are identified. There is an old healed rib fracture involv ing the left seventh rib. This is seen on multiple projections. No other focal rib abnormality is see n. There is a scoliotic deformity of the spine with degenerative disc disease which is incompletely e valuated. Atherosclerotic calcifications involve the aorta. IMPRESSION: 1. No evidence of acutely displaced left-sided rib fracture. 2. Old healed left seventh rib fracture deformity. 3. Scoliosis and degenerative disc disease of the spine. Report Dictated By: Ángel Encinas at 02/05/2018 8:53 PM Report E-Signed By: Ángel Encinas at 02/05/2018 8:56 PM WSN:[id number]
[2018-02-05] MEDS ORDERED: CYCL10TA29 PO (21:19)
[2018-02-05] MEDS ORDERED: CYCLOBENZAPRINE HCL 10 MG TH PO ONE (21:25)
== END 2018-02-05 21:30 | disposition home or self-care (01) ==
LOC: ER 19:40
DX: S20.212A Contusion of left front wall of thorax, initial encounter (principal); S46.912A Strain of unspecified muscle, fascia and tendon at shoulder and upper arm level, left arm, initial encounter; W18.30XA Fall on same level, unspecified, initial encounter; Y92.002 Bathroom of unspecified non-institutional (private) residence as the place of occurrence of the external cause; Y99.8 Other external cause status
CPT/HCPCS: 71046; 71100; 73030; 99285; A4565

== ENCOUNTER 2018-03-23 11:46 | Emergency (ER) | payer MEDICARE, BC ==
[2017-07-25 14:40] VITALS: Wt 45.4 kg
--- NOTE | 2018-03-23 11:47 | ER Report ---
History and Physical Time Seen By MD: 11:47 HPI/ROS CHIEF COMPLAINT: fall with head injury HISTORY OF PRESENT ILLNESS: This is an 87 year old female. She fell when stepping down from the sidewalk to the parking lot at [facility]. Hit her left jainism and periorbital area and now has swelling and hematoma there. Did not lose consciousness. Has a cervical collar in place, placed by EMS for precaution. She has pain at the lateral edges of orbit and zygoma. Mild headache. She is alert and oriented. She does not take blood thinners, but does take a low dose aspirin daily. REVIEW OF SYSTEMS: Constitutional: No fever or chills. Eyes: No vision changes. ENT: No sore throat. No congestion. Cardiovascular: No chest pain. No palpitations. Respiratory: No cough. No shortness of breath. Gastrointestinal: No abdominal pain. No nausea or vomiting. Genitourinary: No frequency or dysuria Musculoskeletal: No back pain. No extremity pain. Skin: No rashes. Neurological: No numbness. No weakness. Allergies: Coded Allergies: celecoxib (Verified Allergy, Mild, SKIN RASH, 03/23/18) amoxicillin (Verified Allergy, Unknown, SKIN RASH, 03/23/18) clavulanic acid (Verified Allergy, Unknown, SKIN RASH, 03/23/18) gluten (Verified Allergy, Unknown, 03/23/18) nitrofurantoin (Verified Allergy, Unknown, SKIN RASH, 03/23/18) Home Meds Active Scripts Simvastatin (SIMVASTATIN) 20 Mg Tablet, 1 TAB PO HS, #90 TAB 3 Refills Prov:MARSHA BARRAGAN MD 03/12/18 Omeprazole (OMEPRAZOLE) 20 Mg Capsule.dr, 1 CAP PO QDAY, #90 CAP 3 Refills Prov:MARSHA BARRAGAN MD 11/16/17 Glimepiride (GLIMEPIRIDE) 2 Mg Tablet, 2 MG PO QDAY, #90 TAB 2 Refills Prov:MARSHA BARRAGAN MD 10/25/17 Metoprolol Tartrate (METOPROLOL TARTRATE) 25 Mg Tablet, 12.5 MG PO BID, #90 TAB 3 Refills Prov:MARSHA BARRAGAN MD 10/11/17 Lancets (LANCETS) 1 Each Each, 1 EACH MC DAILY, #100 9 Refills Use once a day to test blood sugar Prov:MARSAH BARRAGAN MD 12/29/16 Blood Sugar Diagnostic (ONE TOUCH ULTRA TEST STRIPS) 1 Each Strip, 1 EACH MC BID, #100 STRIP 6 Refills Prov:MARSHA BARRAGAN MD 12/28/16 Carbidopa/Levodopa (CARBIDOPA-LEVODOPA 25-100 TAB) 1 Each Tablet, 1 EACH PO QID, #0 TAB Prov:MARSHA BARRAGAN MD 06/19/16 Reported Medications Calcium Carbonate (CALCIUM) 500 Mg Tablet, 2000 MG PO BID 08/28/17 Cholecalciferol (Vitamin D3) (VITAMIN D3) 1,000 Unit Tablet, 2000 UNIT PO DAILY, TAB 07/24/17 Aspirin (ASPIRIN) 81 Mg Tab.chew, 81 MG PO QODAY, TAB.CHEW 07/24/17 Denosumab (PROLIA) 60 Mg/1 Ml Injs, 60 MG SUBQ 07/24/17 Primidone (PRIMIDONE) 50 Mg Tab, 1 TAB PO TID, #90 TAB 12/08/14 Discontinued Scripts Umeclidinium Brm/Vilanterol Tr (Anoro Ellipta 62.5-25 Mcg INH) 1 Each Disk.w.dev, 1 EACH INH DAILY, #3 INH 3 Refills Prov:MARSHA BARRAGAN MD 03/13/18 Cyclobenzaprine Hcl (CYCLOBENZAPRINE HCL) 10 Mg Tablet, 10 MG PO Q8H PRN for MUSCLE SPASMS, #20 TAB 0 Refills Prov:KELLY PEARSON MD 02/05/18 Reviewed Nurses Notes: Yes Hx Smoking: No Smoking Status: Never Smoker Exposure to Second Hand Smoke?: Yes Hx Substance Use Disorder: No Constitutional Vital Sign - Last 24 Hours 03/23/18 03/23/18 03/23/18 03/23/18 11:46 11:49 12:00 12:01 Temp 98.0 Pulse 66 62 ??? Resp 16 B/P (MAP) 175/83 ???/??? (1665) Pulse Ox 93 99 O2 Delivery Room Air 03/23/18 03/23/18 03/23/18 03/23/18 12:08 12:16 12:30 12:31 Pulse 62 61 B/P (MAP) 155/78 (103) 165/77 (106) Pulse Ox 94 94 O2 Delivery Room Air 03/23/18 03/23/18 03/23/18 03/23/18 12:46 13:00 13:01 13:16 Pulse 59 60 62 B/P (MAP) 166/77 (106) Pulse Ox 96 95 93 O2 Delivery Room Air 03/23/18 03/23/18 03/23/18 03/23/18 13:21 13:30 13:36 13:51 Pulse 60 63 65 B/P (MAP) 164/79 (107) Pulse Ox 96 94 96 Physical Exam General Appearance: Alert, no acute distress. Eyes: Pupils equal and round no injection. Extraocular movements are intact. ENT: Normal oral mucosa. Moist mucous membranes. Pain with palpation over the zygoma and the lateral upper and lower orbital rims. Neck: Neck is supple and non tender. Respiratory: Chest is non tender, lungs are clear to auscultation. Cardiac: regular rate and rhythm Gastrointestinal: Abdomen is soft, non-tender. Musculoskeletal: Extremities have full range of motion. Neuro: Alert and oriented x4. No focal deficits noted. Skin: Has bruising and hematoma around the left eye/face area. DIFFERENTIAL DIAGNOSIS: After history and physical exam differential diagnosis was considered for fall with facial and head injury, Neuro normal at this time. CT scans of the head, facial bones and cervical spine. Medical Decision Making EKG/Imaging Imaging HEAD W/O CONTRAST HISTORY: fall, left face/jainism injury COMPARISON STUDIES: Head CT 07/30/2013 TECHNIQUE: Contiguous axial images were obtained from the skull base to the vertex. One of the following dose optimization techniques was utilized in the performance of this exam: automated exposure control; adjustment of the mA and/or kv according to patient size; or use of iterative reconstruction technique. Specific details can be referenced in the facility's radiology CT exam operational policy. FINDINGS: Hemorrhage: Negative Ventricles / sulci / fissures: Negative Masses / midline shift: Negative White matter: Negative Rascon-white differentiation: Negative Vessels: Negative Extra-axial spaces: Negative Bones/skull base: Negative Visualized mastoid air cells / paranasal sinuses: Enlarging expansile lesion involving the left frontal sinus, ethmoid air cells and medial wall of the left orbit measuring 2.0 x 1.4 x 1.7 cm.. Stable bony changes involving the left ethmoid air cells and left maxillary sinus with mild mucosal thickening. Scalp and soft tissues: Left frontal scalp soft tissue swelling. Other findings: None significant IMPRESSION: 1. Negative for acute intracranial blood or skull fracture. 2. Enlarging expansile lesion involving the left frontal sinus, left ethmoid air cells and medial wall of the left orbit with associated chronic bony changes. Consider nonemergent MRI of the paranasal sinuses for further evaluation. Report Dictated By: Quinn Devine MD at 03/23/2018 12:36 PM FACIAL BONES W/O CONTRAST HISTORY: fall, left face/jainism injury COMPARISON STUDIES: none TECHNIQUE: Axial images were obtained from the superior aspect of the orbits through the inferior aspect of mandible without intravenous contrast. Coronal and sagittal reformatted images were obtained from the axial source data. One of the following dose optimization techniques was utilized in the performance of this exam: automated exposure control; adjustment of the mA and/or kv according to patient size; or use of iterative reconstruction technique. Specific details can be referenced in the facility's radiology CT exam operational policy. CONTRAST: None FINDINGS: Soft Tissues: Soft tissue swelling adjacent to the left orbit and at the left frontal region. Mandible / TMJ: Negative Maxilla / pterygoid plates: Negative Zygoma: Negative Orbits: Negative Nasal bones / nasal septum: Negative Sinuses: Please see separate head CT report. Mastoids: Negative Other findings: None significant IMPRESSION: 1. Soft tissue swelling adjacent to the left orbit and at the left frontal region. 2. No evidence of facial bone fracture. 3. Chronic bony changes within the paranasal sinuses with enlarging expansile lesion also involving the medial wall the left orbit. Consider outpatient MRI fo r further evaluation. Report Dictated By: Quinn Devine MD at 03/23/2018 12:51 PM C-SPINE W/O CONTRAST HISTORY: fall, left face/jainism injury COMPARISON STUDIES: none TECHNIQUE: Axial images were obtained from the skull base through the upper thoracic spine without intravenous contrast. Coronal and sagittal reformatted images were obtained from the axial source data. One of the following dose optimization techniques was utilized in the performance of this exam: automated exposure control; adjustment of the mA and/or kv according to patient size; or use of iterative reconstruction technique. Specific details can be referenced in the facility's radiology CT exam operational policy. FINDINGS: Pre-vertebral soft tissues: Negative Fracture/alignment: Negative. There is congenital incomplete fusion of the posterior arch of C1. Vertebral bodies: Negative Posterior elements: Multilevel moderate facet proliferation, right greater than left. Disc Spaces: Multilevel moderate disc space narrowing with uncovertebral joint hypertrophy. Visualized soft tissues anterior neck: 3.0 x 2.2 cm left thyroid nodule Visualized lung / mediastinum: Biapical pleural-parenchymal scarring. Other findings: None significant IMPRESSION: 1. Negative for acute fracture or spondylolisthesis. 2. 3.0 x 2.2 cm left thyroid nodule. Recommend outpatient thyroid ultrasound for further evaluation. Report Dictated By: Quinn Devine MD at 03/23/2018 12:46 PM ED Course/Re-evaluation ED Course After initial evaluation, the patient had CT scans performed. She had the bruising and hematoma around the lateral side of the left eye and the jainism, but CT scans were negative for acute bony injury or intracranial bleeding. Cervical collar was removed after the CTs were reviewed. Had other findings as noted above on the imaging which I discussed with the patient. Recommended follow-up with ENT, Dr. Brown, for the sinus abnormalities. Follow-up with thyroid testing and ultrasound as well with either Dr Brown or primary care. Conservative management discussed regarding contusion. Decision to Disposition Date: Mar 23, 2018 Decision to Disposition Time: 13:34 Depart Departure Latest Vital Signs Vital Signs Date Time Temp Pulse Resp B/P (MAP) Pulse Ox O2 Delivery O2 Flow Rate FiO2 03/23/18 13:51 65 96 03/23/18 13:30 164/79 (107) 03/23/18 13:16 Room Air 03/23/18 11:49 98.0 16 Impression: Primary Impression: Facial contusion Additional Impressions: Left thyroid nodule Mass of paranasal sinus Condition: Improved Disposition: HOME OR SELF-CARE Referrals: MARSHA BARRAGAN MD (PCP) Patient Instructions: Contusion in Adults (ED), Thyroid Nodules (ED) Additional Instructions: You did not have any bony damage to the face, skull or spine. No bleeding in the brain. For the facial contusion and bruising, you can apply ice packs every hour or two while awake for about 15 minutes. Take Tylenol as needed for pain. You had a nodule seen on the left thyroid and need to follow-up to have this evaluated further. There was a mass or growth seen in the left paranasal sinuses that needs to be evaluated further. We recommend follow-up with Dr. Brown, ENT, in the next 5-10 days. Please call his office to schedule an appointment. Problem Qualifiers Primary Impression: Facial contusion Encounter type: initial encounter Qualified Codes: S00.83XA - Contusion of other part of head, initial encounter KELLY PEARSON MD Mar 23, 2018 11:47
--- NOTE | 2018-03-23 12:54 | RADIOLOGY IMAGING REPORT ---
[place] [facility] [place] Chaya [place]ne : 1930 MR: [id number] V: [id number] EXAM DATE: ORDERING PHYSICIAN: KELLY PEARSON TECHNOLOGIST: Location: [facility] - [place] Patient: Chaya Dunne : 1930 Visit/Account:[id number] Date of Sevice: 03/23/2018 C-SPINE W/O CONTRAST HISTORY: fall, left face/pentecostal injury COMPARISON STUDIES: none TECHNIQUE: Axial images were obtained from the skull base through the upper thoracic spine without i ntravenous contrast. Coronal and sagittal reformatted images were obtained from the axial source data . One of the following dose optimization techniques was utilized in the performance of this exam: aut omated exposure control; adjustment of the mA and/or kv according to patient size; or use of iterativ e reconstruction technique. Specific details can be referenced in the facility's radiology CT exam op erational policy. FINDINGS: Pre-vertebral soft tissues: Negative Fracture/alignment: Negative. There is congenital incomplete fusion of the posterior arch of C1. Vertebral bodies: Negative Posterior elements: Multilevel moderate facet proliferation, right greater than left. Disc Spaces: Multilevel moderate disc space narrowing with uncovertebral joint hypertrophy. Visualized soft tissues anterior neck: 3.0 x 2.2 cm left thyroid nodule Visualized lung / mediastinum: Biapical pleural-parenchymal scarring. Other findings: None significant IMPRESSION: 1. Negative for acute fracture or spondylolisthesis. 2. 3.0 x 2.2 cm left thyroid nodule. Recommend outpatient thyroid ultrasound for further evaluation. Report Dictated By: Quinn Devine MD at 03/23/2018 12:46 PM Report E-Signed By: Quinn Devine MD at 03/23/2018 12:50 PM [id number]
--- NOTE | 2018-03-23 12:56 | RADIOLOGY IMAGING REPORT ---
FACILITY: [facility] PATIENT NAME: Chaya Dunne : 1930 MR: [id number] V: [id number] EXAM DATE: ORDERING PHYSICIAN: KELLY PEARSON TECHNOLOGIST: Location: [facility] Patient: Chaya Dunne : 1930 Visit/Account:[id number] Date of Sevice: 03/23/2018 FACIAL BONES W/O CONTRAST HISTORY: fall, left face/anglican injury COMPARISON STUDIES: none TECHNIQUE: Axial images were obtained from the superior aspect of the orbits through the inferior as pect of mandible without intravenous contrast. Coronal and sagittal reformatted images were obtained from the axial source data. One of the following dose optimization techniques was utilized in the per formance of this exam: automated exposure control; adjustment of the mA and/or kv according to patien t size; or use of iterative reconstruction technique. Specific details can be referenced in the [facility]'s radiology CT exam operational policy. CONTRAST: None FINDINGS: Soft Tissues: Soft tissue swelling adjacent to the left orbit and at the left frontal region. Mandible / TMJ: Negative Maxilla / pterygoid plates: Negative Zygoma: Negative Orbits: Negative Nasal bones / nasal septum: Negative Sinuses: Please see separate head CT report. Mastoids: Negative Other findings: None significant IMPRESSION: 1. Soft tissue swelling adjacent to the left orbit and at the left frontal region. 2. No evidence of facial bone fracture. 3. 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 Consider outpatient MRI for further evaluation. Report Dictated By: Quinn Devine MD at 03/23/2018 12:51 PM Report E-Signed By: Quinn Devine MD at 03/23/2018 12:53 PM WSN:[id number]
--- NOTE | 2018-03-23 12:57 | RADIOLOGY IMAGING REPORT ---
FACILITY: [facility] [place] PATIENT NAME: Chaya Dunne : 1930 MR: [id number] V: [id number] EXAM DATE: ORDERING PHYSICIAN: KELLY PEARSON TECHNOLOGIST: Location: [facility] [place] Patient: Chaya Dunne : 1930 Visit/Account:[id number] Date of Sevice: 03/23/2018 HEAD W/O CONTRAST HISTORY: fall, left face/zoroastrian injury COMPARISON STUDIES: Head CT 07/30/2013 TECHNIQUE: Contiguous axial images were obtained from the skull base to the vertex. One of the [place] dose optimization techniques was utilized in the performance of this exam: automated exposure co ntrol; adjustment of the mA and/or kv according to patient size; or use of iterative reconstruction t echnique. Specific details can be referenced in the facility's radiology CT exam operational policy. FINDINGS: Hemorrhage: Negative Ventricles / sulci / fissures: Negative Masses / midline shift: Negative White matter: Negative Rascon-white differentiation: Negative Vessels: Negative Extra-axial spaces: Negative Bones/skull base: Negative Visualized mastoid air cells / paranasal sinuses: Enlarging expansile lesion involving the left front al sinus, ethmoid air cells and medial wall of the left orbit measuring 2.0 x 1.4 x 1.7 cm.. Stable b marybeth changes involving the left ethmoid air cells and left maxillary sinus with mild mucosal thickenin g. Scalp and soft tissues: Left frontal scalp soft tissue swelling. Other findings: None significant IMPRESSION: 1. Negative for acute intracranial blood or skull fracture. 2. Enlarging expansile lesion involving the left frontal sinus, left ethmoid air cells and medial wal l of the left orbit with associated chronic bony changes. Consider nonemergent MRI of the paranasal s inuses for further evaluation. Report Dictated By: Quinn Devine MD at 03/23/2018 12:36 PM Report E-Signed By: Quinn Devine MD at 03/23/2018 12:54 PM WSN:[id number]
[2018-03-23 13:30] VITALS: BP 164/79
== END 2018-03-23 14:14 | disposition home or self-care (01) ==
LOC: ER 11:50
DX: S00.83XA Contusion of other part of head, initial encounter (principal); E04.1 Nontoxic single thyroid nodule; J32.8 Other chronic sinusitis; W01.198A Fall on same level from slipping, tripping and stumbling with subsequent striking against other object, initial encounter; Y92.481 Parking lot as the place of occurrence of the external cause
CPT/HCPCS: 70450; 70486; 72125; 99284

== ENCOUNTER → 2018-03-23 | Outpatient (CLI) | payer MEDICARE, BC ==
[2017-07-25 14:40] VITALS: BMI 21.2
[~2018-03-23] MED LIST changes: +AMLO-111 PO; -AMLO-96 PO; -HYDR-4309 PO; +HYDR-653 PO
== END ==
LOC: AMB 11:14
PROVIDERS: ATTEND Nurse Practitioner
DX: S00.12XA Contusion of left eyelid and periocular area, initial encounter (principal); G20 Parkinson's disease; W01.0XXA Fall on same level from slipping, tripping and stumbling without subsequent striking against object, initial encounter; Y92.481 Parking lot as the place of occurrence of the external cause
CPT/HCPCS: A0425; A0429

== ENCOUNTER → 2018-04-19 | Outpatient (CLI) | payer MEDICARE, BC ==
[2017-07-25 14:40] VITALS: BMI 21.2
[~2018-04-19] MED LIST changes: -METR-160 PO; +METR500T54 PO
== END ==
LOC: AUD 14:00
PROVIDERS: ATTEND Otolaryngology
DX: H91.8X3 Other specified hearing loss, bilateral (principal)
CPT/HCPCS: 92557; 92570

== ENCOUNTER → 2018-05-09 | Outpatient (CLI) | payer MEDICARE, BC ==
[2017-07-25 14:40] VITALS: BMI 21.2
--- NOTE | 2018-05-09 13:31 | EKG ---
FACILITY: [facility] [place] PATIENT NAME: MELL SALAS : [id number] MR: [id number] V: [id number] EXAM DATE: ORDERING PHYSICIAN: DEBBIE VELIZ TECHNOLOGIST: BRENDAN Test Reason : Blood Pressure : / mmHG Vent. Rate : 065 BPM Atrial Rate : 065 BPM P-R Int : 178 ms QRS Dur : 078 ms QT Int : 386 ms P-R-T Axes : 070 -07 013 degrees QTc Int : 401 ms Normal sinus rhythm Normal ECG When compared with ECG of 11-DEC-2017 12:32, Nonspecific T wave abnormality no longer evident in Lateral leads and inferior leads Confirmed by SISSY MALLORY ([id number]) on 05/09/2018 2:22:44 PM Referred By: KEREN Confirmed By:SISSY MALLORY
== END ==
LOC: RESP 13:07
PROVIDERS: ATTEND Otolaryngology
DX: Z01.810 Encounter for preprocedural cardiovascular examination (principal); I10 Essential (primary) hypertension
CPT/HCPCS: 93005

== ENCOUNTER → 2018-05-14 | Outpatient (CLI) | payer MEDICARE, BC ==
[2017-07-25 14:40] VITALS: BMI 21.2
[2018-05-14 13:20] LABS: PLATELET COUNT, AUTOMATED 209 K/uL (150-450)
== END ==
LOC: LAB 13:00
PROVIDERS: ATTEND Otolaryngology
DX: Z01.818 Encounter for other preprocedural examination (principal); E11.9 Type 2 diabetes mellitus without complications; I10 Essential (primary) hypertension
CPT/HCPCS: 36415; 82040; 82247; 82310; 82374; 82435; 82565; 82947; 83036; 84075; 84132; 84155; 84295; 84450; 84460; 84520; 85025

== ENCOUNTER 2018-06-03 00:42 | Day surgery (SDC) | payer MEDICARE, BC ==
[2017-07-25 14:40] VITALS: Ht 154.9 cm; Wt 40.8 kg
[~2018-06-03] VITALS: Ht 154.9 cm; Wt 40.8 kg
[2018-06-03] MEDS ORDERED: NORMOSOL R SOLN(*) 1000 ML BAG 1,000 ML IV PRN (07:40)
[2018-06-03] MEDS ORDERED: CLINDAMYCIN(*) 600 MG/NS 50 ML 50 ML IVPB ONE (07:40)
[2018-06-03] MEDS ORDERED: LIDOCAINE/SOD BICARB 8.4% SYR ID ONE (07:40)
[2018-06-03] MEDS ORDERED: MIDAZOLAM 2 MG/2 ML VIAL IVP PRN (07:40)
[2018-06-03] MEDS ORDERED: NS(*) 0.9% 500 ML BAG 500 ML ONE (07:51)
[2018-06-03] MEDS ORDERED: PROPOFOL EMUL(*) 10MG/ML 20 ML 20 ML ONE (07:51)
[2018-06-03 07:59] VITALS: BP 159/79
[2018-06-03] MEDS ORDERED: BACITRACIN OINT 15 GM TUBE TP ONE (08:28)
[2018-06-03] MEDS ORDERED: LIDO/EPI 1% MDV 1:100,000 20ML INFIL ONE (08:29)
[2018-06-03] MEDS ORDERED: OXYMETAZOLINE SPRAY 15 ML BTL ONE (08:29)
[2018-06-03] MEDS ORDERED: NS(*) 0.9% 250 ML BAG 0 ML ONE (08:29)
[2018-06-03] MEDS ORDERED: HYDR-653 PO (10:22)
[2018-06-03] MEDS ORDERED: AZIT-17 PO (10:23)
[2018-06-03 11:00] VITALS: BP 155/78
[2018-06-03 11:08] VITALS: BP 164/70
[2018-06-03 11:10] VITALS: BP 163/118
[2018-06-03 11:30] VITALS: BP 162/80
[2018-06-03 11:45] VITALS: BP 175/68
--- NOTE | 2018-06-03 11:49 | OPERATIVE REPORT 1 ---
EVENT DATE: June 03, 2018 SURGEON: Barrie Brown Jr., MD ANESTHESIOLOGIST: Robby Acharya M.D. ANESTHESIA: LMA. [employer]ICE TRAY ATTENDANT: [*] PREOPERATIVE DIAGNOSIS Left frontal ethmoid sinus mass. 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 PROCEDURE PERFORMED 1. Lysis of nasal synechiae. 2. Left anterior ethmoidectomy. 3. Left frontal sinuplasty. INDICATIONS Please refer to preoperative note. DESCRIPTION OF PROCEDURE The patient was positively identified in the preoperative area. She was accompanied by her daughter. Risks were again explained, including but not limited to bleeding, infection, cervical spinal fluid leak, injury to the orbit, vision changes and those associated with anesthesia. She acknowledged understanding those risks. I again reviewed the patient's preoperative CT scan. This was notable for an expansile lesion in the left frontal ethmoid region. She was then brought back to the operative suite, laid supine on the operative table and anesthesia was administered. Once asleep, the patient was positioned and prepped and draped in usual sterile fashion. The nasal cavity on the left was initially decongested with cottonoids containing Afrin solution. These were subsequently removed. A nasal endoscopy was performed. This was notable for synechiae between the septum and lateral nasal wall and the middle turbinate and the lateral nasal wall. These were sharpy divided with a knife. An ethmoidectomy was performed. A mucocele was encountered and ruptured. Its' contents were suctioned. A frontal balloon sinuplasty was then performed. A small NasoPore dressing was placed between the middle turbinate and the lateral nasal wall. The patient was then turned to Anesthesia for emergence. ESTIMATED BLOOD LOSS Less than 10 cc. COMPLICATIONS No complications. MTDD
--- NOTE | 2018-06-03 14:18 | NUR ---
1100 PT ARRIVED TO [place] VIA CART, SAFETY MAINTAINED, LOW FOWLERS POSITION. SBAR REPORT FROM Marquez VILLEGAS RN, PT WANT US TO USE RESTROOM, ORTHOSTATIC VITALS INITIATED AND STABLE. 1115 PT UP TO RESTROOM WITH WALKER, MINIMAL ASSIST 1122 PT PLACED ON 5L BLOW BY D/T SPO2 OF 82% AFTER RETURNING FROM RESTROOM, PT TOLERATING ICE WATER, DAUGHTER YUN AT BEDSIDE, ASSESSED, DISTINCT MURMUR, LUNGS CTA, SCANT DRAINAGE ON NASAL DRESSING, HYPERACTIVE BS 1122 PT DOWN TO 3L, 98% 1145 PT ON 1L 93% 1153 REASSESSED, NO CHANGES, PT WOULD LIKE TO GO HOME, ALLOWED TO DRESS 1210 D/C INSTRUCTIONS COVERED, DAUGHTER SEEMED RUSHED TO LEAVE, IV REMOVED, PRESSURE DRESSING APPLIED, ART-LINE DRESSING STILL IN PLACE, CDI, 1212 PT TRANSFERRED VIA TO VEHICLE OUTSIDE OF ADMITTING. SELF TRANSFERRED TO CAR WITHOUT INCIDENT. ALL BELONGINGS WITH PT. DENIES QUESTION AT THIS TIME, ENCOURAGED PATIENT AND DAUGHTER TO CALL WITH QUESTIONS.
== END 2018-06-03 11:00 | disposition home or self-care (01) ==
LOC: OR 00:42
PROVIDERS: ATTEND Otolaryngology
DX: J34.1 Cyst and mucocele of nose and nasal sinus (principal); J34.89 Other specified disorders of nose and nasal sinuses; E11.9 Type 2 diabetes mellitus without complications; F03.90 Unspecified dementia, unspecified severity, without behavioral disturbance, psychotic disturbance, mood disturbance, and anxiety; I10 Essential (primary) hypertension; K21.9 Gastro-esophageal reflux disease without esophagitis; E78.00 Pure hypercholesterolemia, unspecified; Z88.0 Allergy status to penicillin; Z88.8 Allergy status to other drugs, medicaments and biological substances
CPT/HCPCS: 31254; 36416; 82948; A9270; C1726; C1769; C1887; J2250; J2704; J3490; J7040; J7050

== ENCOUNTER → 2018-10-14 | Outpatient (CLI) | payer MEDICARE, BC ==
[2017-07-25 14:40] VITALS: BMI 21.2
[~2018-10-14] MED LIST changes: -AMLO-111 PO; +AMLO-125 PO; +AZIT-17 PO; +DOXY-228 PO; +METR500T15 PO; -METR500T54 PO
== END ==
LOC: LAB 13:36
PROVIDERS: ATTEND Emergency Medicine
DX: G31.84 Mild cognitive impairment of uncertain or unknown etiology (principal); E11.9 Type 2 diabetes mellitus without complications
CPT/HCPCS: 36415; 82607; 83036

== ENCOUNTER → 2018-10-16 | Outpatient (CLI) | payer MEDICARE, BC ==
[2017-07-25 14:40] VITALS: BMI 21.2
== END ==
LOC: US 00:51
PROVIDERS: ATTEND Emergency Medicine
DX: I51.7 Cardiomegaly (principal)
CPT/HCPCS: 93306

== ENCOUNTER → 2019-01-08 | Outpatient (CLI) | payer MEDICARE, BC ==
[2017-07-25 14:40] VITALS: BMI 21.2
[~2019-01-08] MED LIST changes: -OMEP-125 PO; +OMEP-126 PO
[2019-01-08 14:35] LABS: PLATELET COUNT, AUTOMATED 218 K/uL (150-450)
== END ==
LOC: LAB 14:19
PROVIDERS: ATTEND Emergency Medicine
DX: E78.5 Hyperlipidemia, unspecified (principal); E11.9 Type 2 diabetes mellitus without complications; N18.3 Chronic kidney disease, stage 3 (moderate); I12.9 Hypertensive chronic kidney disease with stage 1 through stage 4 chronic kidney disease, or unspecified chronic kidney disease
CPT/HCPCS: 36415; 82040; 82247; 82306; 82310; 82374; 82435; 82465; 82565; 82947; 83036; 83718; 84075; 84132; 84155; 84295; 84450; 84460; 84478; 84520; 85025